=== PATIENT | female | born 1985 | race Caucasian/White ===

== ENCOUNTER 2024-07-08 18:31 | Inpatient (IN) | payer MEDICARE, MEDICAID, SELFPAY ==
--- OUTSIDE RECORDS SUMMARY | 2024-07-08 18:36 | XMS_ITS | Continuity of Care Document ---
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 Following the clinical examination ligamentous testing was negative, however meniscal testing was positive for pain but no clicks (Chrissy and Themarci). Pain and apprehension with extension was consistent, and an approach focused on building strength and motor control of the hamstrings and calf musculature was initiated. She appears to be an appropriate candidate for PT services. Clinical goals: 1) Decrease pain to 4/10 or less. 2) Improve Patient Specific Functional Scale score to less than 40% impaired 3) Left knee AROM 0-140 4) Perform balancing single limb heel/toe raises without apprehension 5) Independent with HEP including consistent positive symptom responses. Treatment Plan: Patient to return for 10 visits over 12 weeks. Treatment may include: Therapeutic exercises for improved lower extremity strength and control as well as improved flexibility, neuromuscular reeducation for improved motor control with functional activities as well as improved balance, manual therapy techniques for improved joint and soft tissue mobility as well as reduced pain. [email or web address] Not available 06/09/2024 13:17:43 Plan of Treatment Reminders Order Date Submit Date Provider Last Modified By Organization Details Last Modified Time Details Appointments Follow Up, 2024 11:00A M FRANK RIVERA DPT Not available Not available Not available LAB Follow-Up 2024 11:30A M [facility] Lab Not available Not available Not available Wellness Visit 2024 01:30P M GARRETT KHAN, DO Not available Not available Not available Lab None recorded. Referral None recorded. Procedures None recorded. Surgeries None recorded. Imaging None recorded. Medication Orders None recorded. Patient TargetsNo targets recorded. Patient InstructionsNo instructions recorded. Reason for Referral None Reported. Results Created Date Observation Date Name Description Value Unit Range Abnormal Flag Note LastModifiedBy Organization Detail LastModifiedTime 05/29/2005/29/2024 , marcelina Ballesteros observ ation record ed. [facility] [place] [address] [place], [address], 06/05/2024 11:43:50 Result Notes None recorded. Problems Name Problem SNOMED Code Status Onset Date Resolution Date Notes Provider Name and Address Organization Details Recorded Time Bipolar disorder 29812995 [facility] 3 13:59:15 Nondepen dent opioid abuse in [facility] n [id number] Completed 04/19/2014 Melissa Russell, [facility], [facility] KASSANDRA maloney, [phone] , [facility] 6 13:45:15 Disorder of vision 95914567 Active [facility] 3 13:59:15 Chronic hepatiti s C 276618354 Active [facility] 3 13:59:15 Tobacco dependen ce syndrome 03234042 Active [facility] 3 13:59:15 History of attempte d suicide 220431129 Active by overdose [facility] 3 13:59:15 Seizure disorder 758494447 Active abnormal EEG, workup in progress Breonna Farrah, [place] [facility] 3 13:59:15 Type B viral hepatiti s 19308480 Active per discharg e 07/20/15 [facility] 3 13:59:15 Tobacco user 233546650 Active 2018 [facility] 3 13:59:15 Migraine 93988401 Active 2018 [facility] 3 13:59:15 Atypical chest pain 031431564 Active 2019 [facility] 3 13:59:15 Hidraden itis suppurat amina 59553655 Active 2019 [facility] 3 13:59:15 Depressi ve disorder 09875225 Active [facility] 3 13:59:15 Acute health crisis 238136487 Active 2022 [facility] 3 11:04:29 Major depressi ve disorder 766563474 Active 2022 [facility] 3 11:04:52 Current drinker 066262 Active 2022 Alcohol use, [facility] 3 11:05:20 Opioid dependen ce 66609683 Active 2022 [facility] 3 11:05:44 Mood disorder 13935577 Active 2023 per [facility] discharg e 01/21/24. Maggi Dejesus LPN null, [facility] 4 08:29:56 Posttrau matic stress disorder 03962402 Active 2023 per [facility] discharg e 01/21/24. Maggi Dejesus LPN null, [facility] 4 08:30:18 Alcohol dependen ce 97248354 Active 2023 per [facility] discharg e 01/21/24. Maggi Dejesus LPN null, [facility] 4 08:30:35 Mass of left breast [id number] 559367 Active 2023 GARRETT KHAN, [address] [place] [address], [phone], [facility] 07:15:58 Problem Notes None recorded. Procedures Surgical History Date Name Laterality Status Provider Name and Address Organization Details Recorded Time 06/16/20 95942: Therapeutic Exercise completed FRANK RIVERA DPT [address] [place] [address], [phone], [facility] 06/16/2024 12:05:09 06/16/20 Physical Activity Counselling completed FRANK RIVERA DPT [address] [place] [address], [phone], [facility] 06/16/2024 11:07:44 06/16/20 Treatment and Advice completed FRANK RIVERA DPT [address] [place] [address], [phone], [facility] 06/16/2024 11:07:44 06/09/20 Physical Activity Counselling completed FRANK RIVERA DPT [address] [place] [address], [phone], [facility] 06/09/2024 10:29:43 06/09/20 24 58442: PT Eval Low Complexity completed FRANK RIVERA DPT [address] [place] [address], [phone], [facility] 06/09/2024 10:29:43 06/09/20 Treatment and Advice completed FRANK RIVERA DPT [address] [place] [address], [phone], [facility] 06/09/2024 11:52:07 05/04/20 Smoking cessation counseling completed Cira Michael [facility] 05/04/2024 09:36:27 03/13/20 Smoking cessation counseling completed Cira Michael [facility] 03/13/2024 13:34:00 03/13/20 24 Medicare Wellness Visit completed Cira Michael [facility] 03/13/2024 13:32:58 03/13/20 24 Alcohol overuse counseling completed Cira Micheal [facility] 03/13/2024 13:34:08 02/09/20 24 Smoking cessation counseling cancelled Cira Michael [facility] 02/09/2024 12:32:49 02/01/20 24 Post hospital/SNF follow-up/Transiti onal Care cancelled NILDA CASTELLANO, [facility]-[address], [phone], [facility] 02/01/2024 05:30:05 11/04/19 22 Smoking cessation counseling completed Melissa Russell, [facility]-[address], [phone], [facility] 11/18/2021 17:48:27 08/06/19 22 Smoking cessation counseling completed Melissa Russell, [facility], [phone], [facility] 08/06/2021 19:51:14 08/06/19 22 Alcohol use screening completed Chery Gonzales MA [facility] 08/06/2021 08:22:20 08/06/19 22 Cardiovascular disease risk reduction counseling completed Chery Gonzales MA [facility] 08/06/2021 08:22:20 08/06/19 22 Medicare Annual Wellness Visit completed Melissa Russell, [facility], [phone], [facility] 08/06/2021 19:51:12 05/13/20 21 Smoking cessation counseling completed Charis Adair NP [address] [place] [address], [phone], [facility] 05/13/2021 11:37:57 05/03/20 20 Smoking cessation counseling completed Chery Gonzales MA [facility] 05/03/2020 14:24:15 05/03/20 20 Carbon Monoxide Testing completed Chery Gonzales MA [facility] 05/03/2020 14:24:15 05/03/20 20 prevention-annual alcohol misuse screening completed Chery Gonzales MA [facility] 05/03/2020 14:18:13 03/02/20 20 Smoking cessation counseling completed Lexy [facility] 03/02/2020 14:06:52 03/02/20 20 Carbon Monoxide Testing completed Lexy [facility] 03/02/2020 14:06:52 02/29/20 20 Smoking cessation counseling completed Melissa Russell, [facility] [address] [place] [address], [phone], [facility] 02/29/2020 10:15:18 07/21/19 20 Smoking cessation counseling completed Melissa Russell [facility] [address] [place] [address], [phone], [facility] 07/23/2019 15:06:02 07/21/19 20 Carbon Monoxide Testing completed Melissa Russell [facility] [address] [place] [address], [phone], [facility] 07/21/2019 10:14:22 04/14/20 19 Smoking cessation counseling completed [facility] 04/14/2019 11:33:44 04/14/20 19 Medicare Wellness Visit completed [facility] 04/14/2019 11:33:09 04/14/20 19 Carbon Monoxide Testing completed [facility] 04/14/2019 11:33:44 01/31/20 19 Smoking cessation counseling completed Melissa Russell [facility] [address] [place] [address], [phone], [facility] 01/30/2019 09:09:13 01/31/20 19 Carbon Monoxide Testing completed Melissa Russell [facility] [address] [place] [address], [phone], [facility] 01/30/2019 09:09:13 07/29/19 19 Smoking cessation counseling completed Lexy Alfaro LPN [facility] 07/29/2018 09:53:52 07/29/19 19 Carbon Monoxide Testing completed Lexy Alfaro LPN [facility] 07/29/2018 09:53:52 07/26/19 19 Smoking cessation counseling completed Sylvia Clemons [facility] 07/26/2018 15:27:16 07/26/19 19 Carbon Monoxide Testing completed Sylvia Clemons [facility] 07/26/2018 15:27:17 01/20/20 18 Smoking cessation counseling completed Bibiana Encinas [facility] 01/19/2018 10:32:32 01/20/20 18 Carbon Monoxide Testing completed Bibianaluiz Encinas [facility] 01/19/2018 10:32:32 10/21/19 18 Smoking cessation counseling completed Abigail Kong MA [facility] 10/20/2017 09:48:40 10/21/19 18 Carbon Monoxide Testing completed Abigail Kong MA [facility] 10/20/2017 09:48:41 08/26/19 18 Smoking cessation counseling completed Bibianaluiz Encinas [facility] 08/25/2017 12:27:03 08/26/19 18 Carbon Monoxide Testing completed Bibianaluiz Encinas [facility] 08/25/2017 12:27:04 04/05/20 17 Smoking cessation counseling completed Lexy [facility] 04/05/2017 12:11:20 04/05/20 17 Carbon Monoxide Testing completed Lexy [facility] 04/05/2017 12:11:21 04/17/20 16 Smoking cessation counseling completed Maggi Baltazar MA [facility] 04/17/2016 10:48:44 11/29/19 16 Carbon Monoxide Testing completed Christina Knowles MA [facility] 11/29/2015 11:47:05 10/23/19 16 Carbon Monoxide Testing completed Christina Knowles MA [facility] 10/23/2015 12:20:36 04/19/20 14 Smoking cessation counseling completed Juliette Salgado MA [facility] 04/19/2014 15:29:49 02/17/20 14 Smoking cessation counseling completed Demetra Miller MA [facility] 02/16/2014 09:12:19 11/01/19 14 Smoking cessation counseling completed Lauren Smyth [facility] 10/31/2013 15:51:12 03/14/20 13 Medicare Wellness Visit completed Juliette Salgado MA [facility] 03/14/2013 11:45:33 Imaging Results None recorded. Procedure Notes None recorded. Medical Equipment None Reported. Allergies Allergen ID Allergen Name Allergen Category Reaction Reaction Severity Criticality Documentation Date Start Date Code Code System Note Provider Name and Address Organization Details Recorded Time 328119 Suboxone medicatio n rash Not available Not available 03/14/2013 59035 0 RxNorm hannah arredondo / hivKASSANDRA Roland [facility] 6 12:00:59 Medications Name Sig Start Date Stop Date Status Note LastModified by Organization Details LastModified Time paroxetin e tab 40mgparox etine hcl 10/22 completed Not Available Not Available Not Available hydroxyz sofie cap 25mg 11/28 completed Not Available Not Available Not Available gabapenti n cap 300mg active Not Available Not Available Not Available hydroxyzi ne hcl 50 mg tabs 04/17 completed Not Available Not Available Not Available paroxetin e tab 10mg active Not Available Not Available Not Available levetirac eta tab 500mg active Not Available Not Available Not Available omeprazol e 20 mg cpdr 10/22 completed Not Available Not Available Not Available citalopra m hydrobrom estrella 40 mg tabs 10/22 completed Not Available Not Available Not Available risperido ne tab 1mg active Not Available Not Available Not Available hydroxyz sofie cap 50mg active Not Available Not Available Not Available bupropion tab 150mg sr active Not Available Not Available Not Available clonidine tab 0.2mg active Not Available Not Available No t Available haloperid ol tab 2mg 10/22 completed Not Available Not Available Not Available levetirac eta tab 250mg active Not Available Not Available Not Available suboxone mis 8-2mg active Not Available Not Available No t Available propranol ol tab 10mgpropr anolol hcl 11/28 completed Not Available Not Available Not Available metoprolo l tartrate 25 mg tabs 10/22 completed Not Available Not Available Not Available topiramat e tab 50mg active Not Available Not Available Not Available chlorprom az tab 100mgchlo rpromazin e hcl 04/17 completed Not Available Not Available Not Available suboxone 8-2 mg film 04/17 completed Not Available Not Available Not Available hydroxyzi ne pamoate 50 mg caps 04/17 completed Not Available Not Available Not Available benztropi ne tab 1mg 10/22 completed Not Available Not Available Not Available fluoxetin e cap 40mg active Not Available Not Available Not Available clonidine tab 0.1mg active Not Available Not Available No t Available prazosin hcl cap 2mg 10/22 completed Not Available Not Available Not Available clonazepa m tab 2mg active Not Available Not Available No t Available gabapenti n 300 mg caps 11/28 completed Not Available Not Available Not Available prazosin hcl 2 mg caps 10/22 completed Not Available Not Available Not Available topiramat e tab 25mg active Not Available Not Available Not Available propranol ol hcl 10 mg tabs 11/28 completed Not Available Not Available Not Available cephalexi n cap 500mg active Not Available Not Available Not Available levetirac eta tab 750mg active Not Available Not Available Not Available prazosin hcl cap 2mgprazos in hcl 10/22 completed Not Available Not Available Not Available dicyclomi ne tab 20mg active Not Available Not Available Not Available atorvasta tin calcium 10 mg tabs 10/22 completed Not Available Not Available Not Available lorazepam tab 1mg active Not Available Not Available Not Available benztropi ne mesylate 0.5 mg tabs 10/22 completed Not Available Not Available Not Available topiramat e 50 mg tabs 04/17 completed Not Available Not Available Not Available mirtazapi ne 15 mg tabs 10/22 completed Not Available Not Available Not Available risperido ne 2 mg tabs 10/22 completed Not Available Not Available Not Available buspirone tab 15mg active Not Available Not Available Not Available levetirac etam 250 mg tabs 10/22 completed Not Available Not Available Not Available mirtazapi ne tab 45mg active Not Available Not Available Not Available lamotrigi ne tab 25mg 10/22 completed Not Available Not Available Not Available prazosin hcl 1 mg caps 10/22 completed Not Available Not Available Not Available topiramat e tab 50mgtopir amate 04/17 completed Not Available Not Available Not Available cyclobenz apr tab 5mg active Not Available Not Available Not Available fluoxetin e cap 10mg active Not Available Not Available Not Available paroxetin e tab 20mgparox etine hcl 10/22 completed Not Available Not Available Not Available doxepin hcl cap 25mg 10/22 completed Not Available Not Available Not Available chlorprom azine hcl 25 mg tabs 04/17 completed Not Available Not Available Not Available propranol ol tab 10mg active Not Available Not Available Not Available chlorprom azine hcl 50 mg tabs 04/17 completed Not Available Not Available Not Available citalopra m tab 20mgcital opram hydrobrom estrella 10/22 completed Not Available Not Available Not Available topiramat e 100 mg tabs 04/17 completed Not Available Not Available Not Available paroxetin e tab 30mg active Not Available Not Available Not Available risperido ne tab 2mg active Not Available Not Available Not Available prazosin hcl cap 1mg active Not Available Not Available Not Available benztropi ne mesylate 1 mg tabs 10/22 completed Not Available Not Available Not Available fluoxetin e hcl 20 mg caps 04/17 completed Not Available Not Available Not Available gabapenti n 100 mg caps 11/28 completed Not Available Not Available Not Available zolpidem tab 10mg active Not Available Not Available Not Available levetirac etam 750 mg tabs 10/22 completed Not Available Not Available Not Available gabapenti n cap 100mggaba pentin 11/28 completed Not Available Not Available Not Available risperido ne tab 2mgrisper idone 10/22 completed Not Available Not Available Not Available lorazepam tab 2mg active Not Available Not Available Not Available haloperid ol 5 mg tabs 10/22 completed Not Available Not Available Not Available paroxetin e tab 40mg active Not Available Not Available Not Available topiramat e tab 25mgtopir amate 04/17 completed Not Available Not Available Not Available permethri n cre 5%permeth rin 10/22 completed Not Available Not Available Not Available topiramat e tab 100mg active Not Available Not Available Not Available lithium carbonate er 450 mg tbcr 10/22 completed Not Available Not Available Not Available prazosin hcl cap 1mgprazos in hcl 10/22 completed Not Available Not Available Not Available pramipexo le tab 0.125mg active Not Available Not Available Not Available aripipraz ole 5 mg tabs 10/22 completed Not Available Not Available Not Available fluoxetin e 40 mg capsule TAKE 1 CAPSULE BY MOUTH EVERY DAY active Not Available Not Available No t Available amoxicill in 500 mg capsule 01/30 completed Not Available Not Available Not Available Mapap Extra Strength 500 mg tablet 01/30 completed Not Available Not Available Not Available lindane 1 % lotion APPLY IN A THIN LAYER (30-60 ML) TO DRY SKIN (RUB IN THOROUGH LY) BY TOPICAL ROUTE ONCE LEAVE ON FOR 8-12 HR, THEN REMOVE BY THOROUGH WASHING 10/22 completed Not Available Not Available Not Available lamotrigi ne 150 mg tablet take 1 tablet by mouth once daily active increase d to 200mg 09/08/23 LL Not Available Not Available Not Available bupropion HCl SR 150 mg tablet,12 hr sustained -release TAKE 1 TABLET BY MOUTH IN THE MORNING AND 1 AT 3PM active Not Available Not Available No t Available clonidine HCl 0.1 mg tablet TAKE 1 TABLET BY MOUTH TWICE A DAY NEEDED 2024 active Not Available Not Available Not Avai lable acetamino phen 325 mg tablet TAKE 2 TABLETS BY MOUTH EVERY 4 HOURS NEEDED FOR PAIN NOT TO EXCEDD 3000MG PER DAY active Not Available Not Available No t Available gabapenti n 600 mg tablet 04/17 completed Not Available Not Available Not Available doxycycli ne hyclate 100 mg capsule take 1 capsule by mouth twice a day for 7 days 05/31 completed PRN, duplicat e. Not Available Not Available Not Available paroxetin e 10 mg tablet TAKE 1 TABLET BY MOUTH ONCE A DAY active Not Available Not Available No t Available benztropi ne 0.5 mg tablet TAKE 1 TABLET BY MOUTH EVERY MORNING FOR SIDE EFFECTS 10/22 completed Not Available Not Available Not Available lamotrigi ne 200 mg tablet TAKE 1 TABLET BY MOUTH DAILY (DOSE INCREASE 07/16/23) active Not Available Not Available No t Available ketoconaz ole 2 % shampoo APPLY TO SCALP TOPICALL Y TWICE A WEEK LEAVE ON FOR 5 MINUTES THEN WASH OFF active Not Available Not Available No t Available haloperid ol 5 mg tablet 10/22 completed Not Available Not Available Not Available citalopra m 40 mg tablet TAKE 1 TAB BY MOUTH ONCE DAILY AT BEDTIME. 10/22 completed Not Available Not Available Not Available trazodone 50 mg tablet TAKE 1 TABLET BY MOUTH AT BEDTIME active Not Available Not Available No t Available atorvasta tin 10 mg tablet 10/22 completed Not Available Not Available Not Available azithromy jackie 250 mg tablet take 2 tablets by mouth today then take 1 tablet DAILY FOR 4 DAYS 12/07 completed Not Available Not Available Not Available ibuprofen 800 mg tablet take 1 tablet by mouth every 6 hours active Not Available Not Available No t Available doxepin 25 mg capsule 10/20 completed Not Available Not Available Not Available levetirac etam 500 mg tablet TK 1 T PO BID 10/22 completed Not Available Not Available Not Available levonorge strel-eth inyl estradiol 0.1 mg-20 mcg tablet Take 1 tablet every day by oral route for 28 days. 04/17 completed Not Available Not Available Not Available sumatript an 100 mg tablet TAKE 1 TABLET BY MOUTH EVERY DAY NEEDED FOR MIGRAINE TAKE AT THE ONSET OF HEADACHE active Not Available Not Available No t Available chlorprom azine 100 mg tablet TAKE 1 TABLET BY MOUTH AT BEDTIME 04/17 completed Not Available Not Available Not Available prazosin 1 mg capsule TAKE 1 CAPSULE BY MOUTH EVERY NIGHT AT BEDTIME active Not Available Not Available No t Available senna 8.6 mg tablet TAKE 2 TABS BY MOUTH ONCE DAILY. 10/22 completed Not Available Not Available Not Available ondansetr on HCl 8 mg tablet take 1 tablet by mouth once daily if needed 09/07 completed Not Available Not Available Not Available fluconazo le 200 mg tablet take 1 tablet by mouth once daily for 42 DAYS 04/17 completed Not Available Not Available Not Available meloxicam 15 mg tablet TAKE 1 TABLET EVERY DAY BY ORAL ROUTE NEEDED FOR 21 DAYS. 2023 active Not Available Not Available Not Avai lable phenazopy ridine 200 mg tablet take 1 tablet by mouth three times a day for 3 days if needed 03/26 completed Not Available Not Available Not Available spironola ctone 100 mg tablet TAKE 1 TABLET BY MOUTH EVERY DAY IN THE MORNING active Not Available Not Available No t Available gabapenti n 400 mg capsule 11/28 completed Not Available Not Available Not Available benzoyl peroxide 10 % topical cleanser APPLY TOPICALL Y TO AXILLA, UNDER BREASTS, ABDOMINA L FOLDS, AND GROIN DAILY active Not Available Not Available No t Available naproxen 250 mg tablet TAKE 1-2 TABS BY MOUTH TWICE A DAY FOR MODERATE PAIN SCALE 4-6 05/04 completed Not Available Not Available Not Available triamcino lone acetonide 0.025 % lotion APPLY TOPICALL Y TO SCALP TWICE DAILY FOR 3 MONTHS THEN STOP active Not Available Not Available No t Available permethri n 5 % topical cream APPLY FROM NECK TO SOLES OF FEET. LEAVE ON FOR 8-14HOUR S THEN WASH OFF THOROUGH LY 10/22 completed Not Available Not Available Not Available sumatript an 50 mg tablet take 1 tablet by mouth if needed AT ONSET OF HEADACHE 09/07 completed increase d to 100mg 09/08/23 LL Not Available Not Available Not Available hydroxyzi ne pamoate 50 mg capsule TAKE ONE CAPSULE BY MOUTH AT BEDTIME 04/17 completed Not Available Not Available Not Available lithium carbonate ER 300 mg tablet,ex tended release takes 3 at bedtime 10/20 completed 04/05/17 patient states not taking Not Available Not Available Not Available topiramat e 25 mg tablet TAKE 1 TABLET BY MOUTH EVERY DAY active Not Available Not Available No t Available hydroxyzi ne HCl 50 mg tablet TAKE 1 TABLET BY MOUTH TWICE A DAY NEEDED active 05/31/20 23- Has not had medicati on in a while, not taking. TR/RMA doesnt know if shes still using 09/08/23 LL Not Available Not Available Not Available melatonin 3 mg tablet take 1 tablet by mouth at bedtime for sleep active Not Available Not Available No t Available doxepin 10 mg capsule take 1/2 to 1 capsule by mouth at bedtime (DILUTE CAPSULE IN WATER) 09/18 completed Not Available Not Available Not Available sulfameth oxazole 800 mg-trimet hoprim 160 mg tablet take 1 tablet by mouth every 12 hours for 5 days 04/01 completed Not Available Not Available Not Available SF 1.1 % dental gel active Not Available Not Available Not Available Nicotrol 10 mg inhalatio n cartridge Inhale 6 cartridg es every day by inhalati on route as needed for 30 days. 01/30 completed Not Available Not Available Not Available triamcino lone acetonide 0.1 % topical cream APPLY A THIN LAYER TOPICALL Y TO AFFECTED AREA TWICE A DAY FOR 2 WEEKS NEEDED active Not Available Not Available No t Available spironola ctone 25 mg tablet take 1 tablet by mouth once daily WITH 50MG TABLETS active increase d to 100mg 09/08/23 LL Not Available Not Available Not Available lithium carbonate ER 450 mg tablet,ex tended release 10/22 completed Not Available Not Available Not Available ondansetr on 8 mg disintegr ating tablet PLACE 1 TABLET ON THE TONGUE AND DISSOLVE NEEDED DAILY active Not Available Not Available No t Available lamotrigi ne 25 mg tablet take 1 tablet by mouth daily for 2 weeks then take 2 tablets daily 04/09 completed Not Available Not Available Not Available ciclopiro x 8 % topical solution APPLY TO AFFECTED AREA AT BEDTIME OR FOR 8 HOURS BEFORE WASHING 05/31 completed not taking, per pt Not Available Not Available Not Available risperido ne 2 mg tablet TAKE 1 TABLET BY MOUTH EVERY NIGHT 10/22 completed Not Available Not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
--- OUTSIDE RECORDS SUMMARY | 2024-07-08 18:36 | XMS_ITS | Continuity of Care Document ---
Author Organization [facility], Physical Therapy, [facility] Address [address] [place] [address] Care Team Providers Care Thoracic Medicine Specialist Name Role Phone APOLONIA JANG Psychiatrist DASH TAVERAS Neurologist [facility] Health Policy Analyst [facility] OTHER GARRETT KHAN Primary Care Provider [phone] Assessment Encounter Date Assessment Date Assessment LastModified by Organization Details LastModified Time 06/16/2024 06/16/2024 Assessment: Patient tolerating exercises performed during session well, with no increased pain at time of performance. Noted patient's concerns regarding UE and back symptoms, encouraged follow up with her PCP if symptoms continue. Clinical goals: 1) Decrease pain to 4/10 [...] tissue mobility as well as reduced pain. [email or web address] Not available 06/16/2024 11:45:54 Plan of Treatment Reminders Order Date Submit Date Provider Last Modified By Organization Details Last Modified Time Details Appointments Follow Up, 30 2024 11:00A Shruti RIVERA DPT Not available Not available Not available LAB Follow-Up 2024 11:30A M [facility] Lab Not available Not available Not available Wellness Visit 30 2024 01:30P M GARRETT KHAN, DO Not available Not available Not available Lab None recorded. Referral None recorded. Procedures None recorded. Surgeries None recorded. Imaging None recorded. Medication Orders None recorded. Patient TargetsNo targets recorded. Patient InstructionsNo instructions recorded. Reason for Referral None Reported. Results Created Date Observation Date Name Description Value Unit Range Abnormal Flag Note LastModifiedBy Organization Detail LastModifiedTime 05/29/20 24 05/29/2024 , marcelina Ballesteros observ ation record ed. [facility] [place] [address], [place], [address], 06/05/2024 11:43:50 Result Notes None recorded. Problems Name Problem SNOMED Code Status Onset Date Resolution Date Notes Provider Name and Address Organization Details Recorded Time Bipolar disorder 46920604 [facility] 13:59:15 Nondepen dent opioid abuse in [facility] n 534448536 Completed 04/19/2014 Melissa Russell, [facility], [place], [address] , [facility] 6 13:45:15 Disorder of vision 54523007 [facility] 13:59:15 Chronic hepatiti s C 513267358 [facility] 3 13:59:15 Tobacco dependen ce syndrome 39477358 [facility] 3 13:59:15 History of attempte d suicide 150485923 Active by overdose [facility] 3 13:59:15 Seizure disorder 477384078 Active abnormal EEG, workup in progress [facility] 3 13:59:15 Type B viral hepatiti s 84712786 Active per discharg e 07/20/15 [facility] 13:59:15 Tobacco user 696575723 Active 2018 [facility] 3 13:59:15 Migraine 03750081 Active 2018 [facility] 3 13:59:15 Atypical chest pain 002141562 Active 2019 [facility] 3 13:59:15 Hidraden itis suppurat amina 05283661 Active 2019 [facility] 3 13:59:15 Depressi ve disorder 96664315 [facility] 3 13:59:15 Acute health crisis 761631583 Active 2022 [facility] Vale Lowe [facility] 3 11:04:29 Major depressi ve disorder 474658264 Active 2022 [facility] Vale Ringer [facility] 3 11:04:52 Current drinker 153959 Active 2022 Alcohol use, [facility] Vale Lowe [facility] 3 11:05:20 Opioid dependen ce 55823295 Active 2022 [facility]. Vale Lowe [facility] 3 11:05:44 Mood disorder 54999518 Active 2023 per [facility] discharg e 01/21/24. Maggi Dejesus LPN null, [facility] 4 08:29:56 Posttrau matic stress disorder 53713905 Active 2023 per [facility] e 01/21/24. Maggi Dejesus LPN null, [facility] 4 08:30:18 Alcohol dependen ce 83084981 Active 2023 per [facility] e 01/21/24. Maggi Dejesus LPN null, [facility] 4 08:30:35 Mass of left breast 28298331611 023179 Active 2023 GARRETT KHAN DO [address] [place] [address], [phone], [facility] 07:15:58 Problem Notes None recorded. Procedures Surgical History Date Name Laterality Status Provider Name and Address Organization Details Recorded Time 06/16/20 00898: Therapeutic Exercise completed FRANK RIVERA DPT [address] [place] [address], [address], [facility] 06/16/2024 12:05:09 06/16/20 Physical Activity Counselling completed FRANK RIVERA DPT [address] [place] [address], [address], [facility] 06/16/2024 11:07:44 06/16/20 Treatment and Advice completed FRANK RIVERA DPT [address] [place] [address], [address], [facility] 06/16/2024 11:07:44 06/09/20 Physical Activity Counselling completed FRANK RIVERA DPT [address] [place] [address], [address], [facility] 06/09/2024 10:29:43 06/09/20 24 03911: PT Eval Low Complexity completed FRANK RIVERA DPT [address] [place] [address], [address], [facility] 06/09/2024 10:29:43 06/09/20 Treatment and Advice completed FRANK RIVERA DPT [address] [place] [address], [address], [facility] 06/09/2024 11:52:07 05/04/20 Smoking cessation counseling completed Cira Michael [facility] 05/04/2024 09:36:27 03/13/20 24 Smoking cessation counseling completed Cira Michael [facility] 03/13/2024 13:34:00 03/13/20 24 Medicare Wellness Visit completed Cira Michael [facility] 03/13/2024 13:32:58 03/13/20 24 Alcohol overuse counseling completed Cira Michael [facility] 03/13/2024 13:34:08 02/09/20 24 Smoking cessation counseling cancelled Cira Michael [facility] 02/09/2024 12:32:49 02/01/20 24 Post hospital/SNF follow-up/Transiti onal Care cancelled NILAD LR LTAlon, [address], [address], [facility] 02/01/2024 05:30:05 11/04/19 22 Smoking cessation counseling completed Melissa Russell, [address], [address], [facility] 11/18/2021 17:48:27 08/06/19 22 Smoking cessation counseling completed Melissa Russell, [address], [address], [facility] 08/06/2021 19:51:14 08/06/19 22 Alcohol use screening completed Chery Gonzales MA [facility] 08/06/2021 08:22:20 08/06/19 22 Cardiovascular disease risk reduction counseling completed Chery Gonzales MA [facility] 08/06/2021 08:22:20 08/06/19 22 Medicare Annual Wellness Visit completed Melissa Russell [address], [address], [facility] 08/06/2021 19:51:12 05/13/20 21 Smoking cessation counseling completed Charis Adair NP [address] [place] [address], [address], [facility] 05/13/2021 11:37:57 05/03/20 20 Smoking cessation counseling completed Chery Gonzales MA [facility] 05/03/2020 14:24:15 05/03/20 20 Carbon Monoxide Testing completed Chery Gonzales MA [facility] 05/03/2020 14:24:15 05/03/20 20 prevention-annual alcohol misuse screening completed Chery Pise, [facility] 05/03/2020 14:18:13 03/02/20 20 Smoking cessation counseling completed Lexy Lopez [facility] 03/02/2020 14:06:52 03/02/20 20 Carbon Monoxide Testing completed Lexy Lopez [facility] 03/02/2020 14:06:52 02/29/20 20 Smoking cessation counseling completed Melissa Russell [facility]-[address], [address], [facility] 02/29/2020 10:15:18 07/21/19 20 Smoking cessation counseling completed Melissa Russell [facility]-[address], [address], [facility] 07/23/2019 15:06:02 07/21/19 20 Carbon Monoxide Testing completed Melissa Russell [facility]-[address], [address], [facility] 07/21/2019 10:14:22 04/14/20 19 Smoking cessation counseling completed [facility] 04/14/2019 11:33:44 04/14/20 19 Medicare Wellness Visit completed [facility] 04/14/2019 11:33:09 04/14/20 19 Carbon Monoxide Testing completed [facility] 04/14/2019 11:33:44 01/31/20 19 Smoking cessation counseling completed Melissa Russell [facility]-[address], [address], [facility] 01/30/2019 09:09:13 01/31/20 19 Carbon Monoxide Testing completed Melissa Russell [facility]-[address], [address], [facility] 01/30/2019 09:09:13 07/29/19 19 Smoking cessation counseling completed Lexy Alfaro LPN [facility] 07/29/2018 09:53:52 07/29/19 19 Carbon Monoxide Testing completed Lexy Alfaro LPN [facility] 07/29/2018 09:53:52 07/26/19 19 Smoking cessation counseling completed Sylvia Clemons [facility] 07/26/2018 15:27:16 07/26/19 19 Carbon Monoxide Testing completed Sylvia Clemons [facility] 07/26/2018 15:27:17 01/20/20 18 Smoking cessation counseling completed Bibiana Encinas [facility] 01/19/2018 10:32:32 01/20/20 18 Carbon Monoxide Testing completed Bibiana Encinas [facility] 01/19/2018 10:32:32 10/21/19 18 Smoking cessation counseling completed Abigail Kong MA [facility] 10/20/2017 09:48:40 10/21/19 18 Carbon Monoxide Testing completed Abigail Kong MA [facility] 10/20/2017 09:48:41 08/26/19 18 Smoking cessation counseling completed Bibiana Encinas [facility] 08/25/2017 12:27:03 08/26/19 18 Carbon Monoxide Testing completed Bibiana Encinas [facility] 08/25/2017 12:27:04 04/05/20 17 Smoking cessation counseling completed Lexy Lopez [facility] 04/05/2017 12:11:20 04/05/20 17 Carbon Monoxide Testing completed Lexy Lopez [facility] 04/05/2017 12:11:21 04/17/20 16 Smoking cessation counseling completed Maggi Baltazar MA [facility] 04/17/2016 10:48:44 11/29/19 16 Carbon Monoxide Testing completed Christina Knowles MA [facility] 11/29/2015 11:47:05 10/23/19 16 Carbon Monoxide Testing completed Christina Knowles MA [facility] 10/23/2015 12:20:36 04/19/20 14 Smoking cessation counseling completed Juliette Salgado MA [facility] 04/19/2014 15:29:49 02/17/20 14 Smoking cessation counseling completed Demetra Miller MA [facility] 02/16/2014 09:12:19 11/01/19 14 Smoking cessation counseling completed Lauren Smyth [facility] 10/31/2013 15:51:12 03/14/20 13 Medicare Wellness Visit completed Juliette Salgado MA [facility] 03/14/2013 11:45:33 Imaging Results None recorded. Procedure Notes None recorded. Medical Equipment None Reported. Allergies Allergen ID Allergen Name Allergen Category Reaction Reaction Severity Criticality Documentation Date Start Date Code Code System Note Provider Name and Address Organization Details Recorded Time 900138 Suboxone medicatio n rash Not available Not available 03/14/2013 09756 0 RxNorm hannah arredondo / zohra Knowles MA [facility] 6 12:00:59 Medications Name Sig Start [...] BY MOUTH EVERY DAY AT BEDTIME CANCEL [place] LD RX active Not Available [...] methadone 10/22 completed 40 mg daily @ [facility] Not Available Not Available Not Available [...] Not Available Not Available Not Available Fluzone 7364-6768 45 mcg (15 mcg x 3)/0.5 mL intramusc ular suspensio n TO BE ADMINIST ERED BY PHARMACI ST FOR IMMUNIZA TION active Not Available Not Available No t Available Vitals None Recorded Social History Question Answer Notes LastModified by Organizat ion Details LastModified Time Tobacco Smoking Status Current Every Day Smoker Greta Slade MA [facility], [facility] 09/18/2020 16:15:47 What Is Your Level [...] 07/21/2019 Education 12 GED, Wants To Become Table Operator Information not available 03/14/2013 What Is Your Occupation? Disability For Psych Problems,f Or The Last 4 Years Information not available 03/14/2013 Have There Been Any Changes To Your Family Or Social Situation? Yes Brother Is Trying To Get A Liver Transplant! Has Seperated From [facility], [facility] Information not available 03/13/2024 How Many Days [...] 05/03/2020 Does The Patient Have Difficulty Speaking Fijian? No Information not available 03/14/2013 Does The Patient Have Difficulty Reading Fijian? No Information not available 11/29/2015 CCM Consent Discussion 10/20/2017 gabe Information not available 10/20/2017 Marital Status Single Has Off And On Female Partner- / 18- IN A RELATIONSHIP Information not available 03/14/2013 Mosquito Repellent Used Routinely No Information not available 03/14/2013 What Was The Date Of Your Most Recent Tobacco Screening? 05/04/2024 Information not available 05/04/2024 How Many Children Do You Have? 1 Step Daughter Information not available 03/04/2023 What Is Your [...] cancer Medical History Condition Response NEUROLOGIC Y INFECTIOUS DISEASE ENT N GASTROINTESTINAL N SKIN N Hepatitis C Y MUSCULOSKELETAL Y ENDOCRINE N RHEUMATOLOGIC N RESPIRATORY N EYE Y RENAL / GENITOURINARY N HEMATOLOGIC N Hepatitis B Y HIV/AIDS N Substance Abuse Y CARDIOVASCULAR N CANCER N Gynecological History Statement/Question Response History of Abnormal Pap N Current Control Method Date of LMP 07/23/2021 LMP Approximate Frequency of Cycle (Q days) Obstetrics History GPAL:G 0 P 0 0 0 0 Immunizations Vaccine Type Date Status Note Provider Nam e and Address Organization Details Recorded Time influenza, unspecified formulation 3 completed Breonna Yan MA null, [facility] 07/16/2022 13:59:15 Influenza, split virus, quadrivalent, PF 9 completed Not Available [facility] 07/[facility]2019 02:30:26 Influenza, split virus, quadrivalent, PF 1 completed Charis Adair, [employer] [address] [place] [address], [address], [facility] 05/13/2021 11:33:01 Influenza, split virus, quadrivalent, PF 2 completed Melissa Russell, [address], [address], [facility] 04/19/2022 12:34:21 Influenza, split virus, quadrivalent, PF 3 completed Melissa Russell, [address], [address], [facility] 03/06/2023 12:19:47 Influenza, split virus, trivalent, PF 4 completed GARRETT KHAN, [address] [place] [address], [address], [facility] 03/15/2024 07:39:47 Tdap 4 completed NITZA Soriano, [facility] 08/06/2023 06:47:06 Past Encounters Encounter ID Performer Location Encounter Start Date Encounter Closed Date Diagnosis/Indication Diagnosis SNOMED-CT Code Diagnosis ICD10 Code Diagnosis Note [id number] FRANK RIVERA DPT Physical Therapy, [address] [address] 06/09/2024 10:43:39 06/09/2024 14:58:10 Pain of left knee joint 8848503649 07190 M25.562 [id number] FRANK RIVERA DPT Physical Therapy, [address] [address] 06/16/2024 10:58:38 06/16/2024 12:06:38 Pain of left knee joint 9123830655 88680 M25.562 Health Concerns Section Related Observation LastModified by Organization Detai ls LastModified Time None Recorded Concern Status LastModified by Organization Details LastModified Time None Recorded Payers Encounter Date Sequence Insurance Name Policy Number Policy Turcios Covered Member ID Turcios Member ID Guarantor Name 06/16/2024 1 [place] [employer] Alona Horowitz [id number] Alona Horowitz 06/16/2024 2 [place] Alona Horowitz [id number] Alona Horowitz Notes Date Note Type Note Provider Name and Address Organization Details Recorded Time 06/16/2024 text/html Current Subjective: Patient reports that she has done the exercises some at home. She is unsure if they are helping, but she has not had increased pain during. She is concerned about other pains on the left side of her body, including her left arm into her fingers including some tingling. She notes that she gets some numbness in her back. Activities: Patient does yoga, likes to run (but cannot), likes to dance Patient goals: Decrease pain, decrease the buckling, knee/move more comfortably Patient Specific Functional Score:{{10 20 30 4 0 50* 60 70 80 90 100}} Percent limitation in dance{{10 20 30* 4 0 50 60 70 80 90 1 00}} Percent limitation in run{{10 20 30 40 5 0 60 70 80 90 100} } Percent limitation in FRANK NICOLE, DPT [address] [place] [address], [address], [facility] 06/16/2024 12:06:02 OBGyn Episode No OBEpisode recorded.
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
[2024-07-08 19:15] VITALS: BMI 28.2
[2024-07-08 19:33] VITALS: BP 106/63; PULSE 74; TEMP 36.3; O2SAT 99
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
[2024-07-08 19:50] LABS: Alanine Aminotransferase 24 U/L (0-31); Albumin Level 4.4 g/dL (3.5-5.0); Alkaline Phosphatase 64 U/L (39-117); Anion Gap 10 (12-20); Aspartate Amino Transferase 22 U/L (5-31); Bilirubin Total 0.3 mg/dL (0.0-1.0); Blood Urea Nitrogen 14 mg/dL (9-16); Calcium 9.3 mg/dL (8.4-10.2); Carbon Dioxide 25 mmol/L (22-29); Chloride 106 mmol/L (96-108); Creatinine Clr Calc Pharmacy 99.1; Estimated Glomerular Filt Rate > 60; Glucose Random 90 mg/dL (60-115); Potassium 4.3 mmol/L (3.3-5.1); Sodium 137 mmol/L (135-145); Total Protein 7.7 g/dL (6.5-8.0)
[2024-07-08] MEDS: Prazosin HCL 1 MG CAPSULE PO (21:27)
[2024-07-08] MEDS: LORazepam 1 MG TABLET 2 MG PO (21:27)
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
[2024-07-09 08:00] VITALS: BP 118/73; PULSE 100; RESP 16; TEMP 36; O2SAT 97
[2024-07-09] MEDS: FLUoxetine HCl 20 MG CAPSULE 40 MG PO (08:03)
[2024-07-09 08:04] VITALS: BP 118/73
[2024-07-09] MEDS: Topiramate 25 MG TABLET PO (08:04)
[2024-07-09] MEDS: lamoTRIgine 100 MG TABLET 200 MG PO (08:04)
[2024-07-09] MEDS: Spironolactone 25 MG TABLET 100 MG PO (08:04)
[2024-07-09] MEDS: LORazepam 1 MG TABLET PO ×2 (08:05→20:31)
[2024-07-09] MEDS: Buprenorphine/Naloxone 8/2 mg FILM 1 FILM SUBLINGUAL (08:34)
[2024-07-09] MEDS: Buprenorphine/Naloxone 2/0.5mg FILM 1 FILM SUBLINGUAL (08:34)
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
[2024-07-09] MEDS: Acetaminophen 325 MG TABLET 650 MG PO (13:01)
[2024-07-09] MEDS: diazePAM 5 MG TABLET 20 MG PO (13:01)
[2024-07-09] MEDS: hydrOXYzine HCL 25 MG TABLET PO (17:48)
[2024-07-09] MEDS: Ondansetron ODT 8 MG TAB.RAPDIS TRANSLINGU (17:48)
[2024-07-09 19:51] VITALS: BP 116/61; PULSE 84; RESP 15; TEMP 36.6; O2SAT 98
[2024-07-09] MEDS: traZODone HCL 50 MG TABLET PO (20:27)
[2024-07-09] MEDS: LORazepam 1 MG TABLET 2 MG PO (20:27)
[2024-07-09] MEDS: Prazosin HCL 1 MG CAPSULE PO (20:27)
[2024-07-10 08:00] VITALS: BP 118/71; PULSE 58; TEMP 36; O2SAT 98
[2024-07-10] MEDS: lamoTRIgine 100 MG TABLET 200 MG PO (08:09)
[2024-07-10 08:10] VITALS: BP 118/71
[2024-07-10] MEDS: Spironolactone 25 MG TABLET 100 MG PO (08:10)
[2024-07-10] MEDS: Buprenorphine/Naloxone 8/2 mg FILM 1 FILM SUBLINGUAL (08:10)
[2024-07-10] MEDS: Topiramate 25 MG TABLET PO (08:10)
[2024-07-10] MEDS: LORazepam 1 MG TABLET PO (08:10)
[2024-07-10] MEDS: FLUoxetine HCl 20 MG CAPSULE 40 MG PO (08:10)
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
[2024-07-10] MEDS: diazePAM 5 MG TABLET 20 MG PO (14:43)
[2024-07-10] MEDS: Buprenorphine/Naloxone 2/0.5mg FILM 1 FILM SUBLINGUAL (16:00)
[2024-07-10] MEDS: hydrOXYzine HCL 25 MG TABLET PO (17:37)
[2024-07-10 20:00] VITALS: BP 112/76; PULSE 97; TEMP 36; O2SAT 98
[2024-07-10 21:29] VITALS: BP 112/76
[2024-07-10] MEDS: Prazosin HCL 1 MG CAPSULE PO (21:29)
[2024-07-10] MEDS: traZODone HCL 50 MG TABLET PO (21:29)
[2024-07-10] MEDS: LORazepam 1 MG TABLET 2 MG PO (21:29)
[2024-07-11 02:50] VITALS: BP 109/60; PULSE 73; TEMP 36.6; O2SAT 98
[2024-07-11 02:55] VITALS: BP 109/60
[2024-07-11] MEDS: Ondansetron ODT 8 MG TAB.RAPDIS TRANSLINGU (02:55)
[2024-07-11] MEDS: cloNIDine HCL 0.1 MG TABLET PO (02:55)
[2024-07-11] MEDS: Loperamide HCl 2 MG CAPSULE 4 MG PO (03:09)
[2024-07-11 08:00] VITALS: BP 110/57; PULSE 77; RESP 18; TEMP 36.8; O2SAT 97
[2024-07-11 08:06] VITALS: BP 110/57
[2024-07-11] MEDS: lamoTRIgine 100 MG TABLET 200 MG PO (08:06)
[2024-07-11] MEDS: Spironolactone 25 MG TABLET 100 MG PO (08:06)
[2024-07-11] MEDS: Buprenorphine/Naloxone 8/2 mg FILM 1 FILM SUBLINGUAL (08:07)
[2024-07-11] MEDS: FLUoxetine HCl 20 MG CAPSULE 40 MG PO (08:07)
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
[2024-07-11] MEDS: Buprenorphine/Naloxone 2/0.5mg FILM 1 FILM SUBLINGUAL (14:08)
[2024-07-11] MEDS: diazePAM 5 MG TABLET 20 MG PO (18:27)
[2024-07-11 20:00] VITALS: BP 122/73; PULSE 85; RESP 16; TEMP 36.2; O2SAT 99
[2024-07-11] MEDS: traZODone HCL 50 MG TABLET PO (21:01)
[2024-07-11] MEDS: Topiramate 25 MG TABLET PO (21:01)
[2024-07-11] MEDS: LORazepam 1 MG TABLET 2 MG PO (21:01)
[2024-07-11] MEDS: Prazosin HCL 1 MG CAPSULE PO (21:01)
[2024-07-12 07:51] VITALS: BP 128/57; PULSE 120; TEMP 36.6; O2SAT 100
[2024-07-12] MEDS: Buprenorphine/Naloxone 8/2 mg FILM 1 FILM SUBLINGUAL (08:06)
[2024-07-12] MEDS: FLUoxetine HCl 20 MG CAPSULE 40 MG PO (08:06)
[2024-07-12] MEDS: Spironolactone 25 MG TABLET 100 MG PO (08:06)
[2024-07-12] MEDS: lamoTRIgine 100 MG TABLET 200 MG PO (08:06)
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
[2024-07-12] MEDS: Buprenorphine/Naloxone 2/0.5mg FILM 1 FILM SUBLINGUAL (15:03)
[2024-07-12] MEDS: FLUoxetine HCl Oral Solution 20 MG/5 ML SOLUTION PO (16:07)
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
[2024-07-12] MEDS: diazePAM 5 MG TABLET 20 MG PO (17:52)
[2024-07-12 19:35] VITALS: BP 114/68; PULSE 89; RESP 16; TEMP 36.5; O2SAT 99
[2024-07-12] MEDS: Prazosin HCL 1 MG CAPSULE PO (21:02)
[2024-07-12] MEDS: traZODone HCL 50 MG TABLET PO (21:03)
[2024-07-12] MEDS: Topiramate 25 MG TABLET PO (21:03)
[2024-07-12] MEDS: LORazepam 1 MG TABLET 2 MG PO (21:03)
[2024-07-13 07:56] VITALS: BP 129/88; PULSE 109; RESP 18; TEMP 36.8; O2SAT 98
[2024-07-13] MEDS: Buprenorphine/Naloxone 8/2 mg FILM 1 FILM SUBLINGUAL (08:07)
[2024-07-13] MEDS: Spironolactone 25 MG TABLET 100 MG PO (08:07)
[2024-07-13] MEDS: lamoTRIgine 100 MG TABLET 200 MG PO (08:07)
[2024-07-13] MEDS: FLUoxetine HCl 20 MG CAPSULE 60 MG PO (08:07)
[2024-07-13] MEDS: Naloxone HCl Nasal TAKE HOME 4 MG SPRAY 8 MG NOSTRILALT (08:09)
[2024-07-13] MEDS: Milk of Magnesia 30 ML ORAL.SUSP PO (09:08)
== END 2024-07-13 10:31 | disposition home or self-care (01) | DRG 885 ==
PROVIDERS: Admitting Provider Psychiatry & Neurology Psychiatry; PCP Internal Medicine Nephrology; Visit Provider Psychiatry & Neurology Psychiatry
DX: F33.2 Major depressive disorder, recurrent severe without psychotic features (principal); F43.10 Post-traumatic stress disorder, unspecified; G89.21 Chronic pain due to trauma; M54.9 Dorsalgia, unspecified; M25.562 Pain in left knee; F17.210 Nicotine dependence, cigarettes, uncomplicated; Z71.6 Tobacco abuse counseling; Z79.899 Other long term (current) drug therapy
CPT/HCPCS: 36415; 80053

== ENCOUNTER → 2024-07-08 18:31 | Outpatient (BNV) | payer MEDICARE, MEDICAID, SELFPAY | PROVIDERS: Admitting Provider Psychiatry & Neurology Psychiatry; PCP Internal Medicine Nephrology; Visit Provider Psychiatry & Neurology Psychiatry | DX: F33.2 Major depressive disorder, recurrent severe without psychotic features (principal); F43.11 Post-traumatic stress disorder, acute | CPT/HCPCS: 90792; 99231; 99232; 99239 ==

== ENCOUNTER → 2024-07-08 18:31 | Outpatient (BNV) | payer MEDICARE, MEDICAID, SELFPAY | PROVIDERS: Admitting Provider Psychiatry & Neurology Psychiatry; PCP Internal Medicine Nephrology; Visit Provider Student in an Organized Health Care Education/Training Program | DX: Z02.2 Encounter for examination for admission to residential institution (principal) | CPT/HCPCS: 99429 ==

== ENCOUNTER 2024-10-02 10:57 | Emergency (ER) | payer MEDICARE, MEDICAID, SELFPAY ==
[2024-10-02 11:47] VITALS: BP 135/73; PULSE 66; RESP 19; TEMP 36.6; O2SAT 98; BMI 29.2
--- NOTE | 2024-10-02 11:48 | ED_ITS ---
HPI - General Adult General Chief complaint: Medical Clearance Stated complaint: Med Clearance Time Seen by Provider: 10/02/24 11:47 Source: patient Mode of arrival: ambulatory Limitations: no limitations History of Present Illness ED Provider: DEL VALENZUELA PA-C HPI narrative: 38 year old female pmhx significant for MDD and PTSD presents to the ED today requesting urine drug screen. She has a bed at [facility]. They requested she come to the ED for UDS. No complaints. Related Data Previous Rx's ?Medication ?Instructions ?Recorded buprenorphine 2 mg-naloxone 0.5 mg 1 film sublingual DAILY@1430 30 07/12/24 sublingual film days #30 ea buprenorphine 8 mg-naloxone 2 mg 1 film sublingual DAILY 30 days 07/12/24 sublingual film (Suboxone) #30 ea clonidine HCl 0.1 mg tablet 0.1 mg PO BID PRN Anxiety 30 days 07/12/24 #60 tabs fluoxetine 60 mg tablet 60 mg PO QAM 30 days #30 tabs 07/12/24 hydroxyzine HCl 25 mg tablet 25 mg PO Q6H PRN Anxiety 30 days 07/12/24 #60 tabs lamotrigine 200 mg tablet 200 mg PO DAILY 30 days #30 tabs 07/12/24 ondansetron 8 mg disintegrating 8 mg PO DAILY PRN nausea/vomiting 07/12/24 tablet 30 days #30 tabs prazosin 1 mg capsule 1 mg PO BEDTIME 30 days #30 caps 07/12/24 spironolactone 100 mg tablet 100 mg PO QAM 30 days #30 tabs 07/12/24 sumatriptan succinate 100 mg tablet 100 mg PO DAILY PRN migraine 30 07/12/24 days #30 tabs topiramate 25 mg tablet 25 mg PO DAILY 30 days #30 tabs 07/12/24 trazodone 50 mg tablet 50 mg PO BEDTIME PRN insomnia 30 07/12/24 days #30 tabs diazepam 10 mg tablet 10 mg PO BEDTIME PRN Anxiety 7 07/13/24 days #7 tabs lorazepam 1 mg tablet (Ativan) 1 mg PO BID PRN anxiety 14 days 07/13/24 #14 tabs lorazepam 2 mg tablet (Ativan) 2 mg PO BEDTIME PRN insomnia 14 07/13/24 days #14 tabs Allergies Allergy/AdvReac Type Severity Reaction Status Date / Time No Known Allergies Allergy Verified 10/02/24 11:49 [No Known Allergies*] Review of Systems Review of Systems: Yes all other systems are reviewed and are negative [facility] Past Medical History Attestation statement: The following information was validated with the patient. Source: old records reviewed and nursing notes reviewed Social History Social History Household Members: Other Household Members Other:: Used to live with mom, now hoeless. Housing: Homeless Do you presently have visiting nurse or other home services: No Patient Tobacco Use Status: Current everyday Tobacco user Tobacco use type: Cigarette Substance Use Type: Former Substance User Advance Directives: No Advance Directives Information Provided: Yes Do you have a plan to hurt others: No Plan service: No Sexual orientation: Lesbian/Lott/Homosexual Physical Exam ED Vital Signs: Vital Signs - 24 hr 10/02/24 11:47 10/02/24 13:17 Temperature 98 F 98 F Pulse Rate 66 66 Respiratory Rate 19 19 Blood Pressure 135/73 135/73 Pulse Oximetry 98 98 Oxygen Delivery Method Room Air Room Air BMI result Body Mass Index 29.2 vital signs stable General: Well appearing, in no acute distress. Skin: Warm, dry, intact. No rashes or lesions. Head: Normocephalic, atraumatic. EENT: Hearing is intact b/l. Conjunctiva clear. EOM intact. Cardiac: Chest wall symmetric Lungs: Normal respiratory effort without accessory muscle use Ext: Upper and lower extremities atraumatic, without tenderness, deformity, swelling or erythema Neuro: AOx3. Normal speech. Ambulating with steady gait. Course Course Course Narrative: Urine toxicology positive for buprenorphine. Patient is currently on Suboxone. Urine drug screen otherwise negative. Patient informed of results. Patient informed that this was not a monitored urine collection and not she may be re quired to go to an official drug testing facility. She verbalizes understanding. Provided with note for Cristobal Johansen. Patient has remained stable throughout ED visit today. Discussed worrisome signs and symptoms and when to return to the ED. All questions answered at this time. Patient is agreeable with disposition and stable for discharge. Medical Decision Making Medical Decision Making MDM Narrative: 38 year old female pmhx significant for MDD and PTSD presents to the ED today requesting urine drug screen. Vital signs are stable. She is well-appearing. No acute distress. Plan for urine drug screen and disposition. Differential Diagnosis Differential Diagnoses: The differential diagnosis associated with the presentation includes as above. Admission/Observation Not indicated Lab Data MDM Lab Attestation statement: I reviewed the patient's lab results. As above Labs: Lab Results 10/02/24 Range/Units 12:56 Urine Opiates Screen Not Detected (Not Detect) Ur Buprenorphine Scrn Positive H (Not Detect) ng/mL Ur Oxycodone Screen Not Detected (Not Detect) ng/mL Urine Methadone Screen Not Detected (Not Detect) ng/mL Urine Fentanyl Screen Not Detected (Not Detect) Ur Barbiturates Screen Not Detected (Not Detect) Ur Phencyclidine Scrn Not Detected (Not Detect) Ur Amphetamines Screen Not Detected (Not Detect) U Benzodiazepines Scrn Not Detected (Not Detect) Urine Cocaine Screen Not Detected (Not Detect) U Marijuana (THC) Screen Not Detected (Not Detect) Social Determinants Patient?s care significantly limited by Social Determinants of Health including: Other Social Determinant of Health Critical Care Time Critical Care Time Critical Care Time: No Discharge Plan Discharge Clinical Impression: Encounter for drug screening Patient Disposition: Home, Self-Care Additional Instructions: You presented to the ED today requesting a urine drug screen. Your urine was positive for buprenorphine. otherwise negative. Your urine collection was not monitored today. You were facility may require you to go to an official drug testing facility where this is monitored. Please return with any new or worsening symptoms. In the case of an emergency call 911. Prescriptions: No Action hydroxyzine HCl 25 mg Tablet 25 mg PO Q6H PRN (Reason: Anxiety) 30 Days Qty: 60 0RF clonidine HCl 0.1 mg tablet 0.1 mg PO BID PRN (Reason: Anxiety) 30 Days Qty: 60 0RF lamotrigine 200 mg tablet 200 mg PO DAILY 30 Days Qty: 30 0RF trazodone 50 mg tablet 50 mg PO BEDTIME PRN (Reason: insomnia) 30 Days Qty: 30 0RF sumatriptan succinate 100 mg tablet 100 mg PO DAILY PRN (Reason: migraine) 30 Days Qty: 30 0RF prazosin 1 mg capsule 1 mg PO BEDTIME 30 Days Qty: 30 0RF spironolactone 100 mg tablet 100 mg PO QAM 30 Days Qty: 30 0RF topiramate 25 mg tablet 25 mg PO DAILY 30 Days Qty: 30 0RF ondansetron 8 mg tablet,disintegrating 8 mg PO DAILY PRN (Reason: nausea/vomiting) 30 Days Qty: 30 0RF buprenorphine-naloxone 2-0.5 mg film 1 film sublingual DAILY@1430 30 Days Qty: 30 0RF buprenorphine-naloxone [Suboxone] 8-2 mg film 1 film sublingual DAILY 30 Days Qty: 30 0RF fluoxetine 60 mg tablet 60 mg PO QAM 30 Days Qty: 30 0RF diazepam 10 mg Tablet 10 mg PO BEDTIME PRN (Reason: Anxiety) 7 Days Qty: 7 0RF lorazepam [Ativan] 1 mg tablet 1 mg PO BID PRN (Reason: anxiety) 14 Days Qty: 14 1RF lorazepam [Ativan] 2 mg tablet 2 mg PO BEDTIME PRN (Reason: insomnia) 14 Days Qty: 14 1RF Interventions: ED Discharge Assessment Last Done: 10/02/24 13:17 Discharge Date/Time: 10/02/24 13:18 Print Language: Belize[place]
[2024-10-02 13:14] LABS: Amphetamine Screen Urine Not Detected (Not Detect); Barbiturates, Urine Not Detected (Not Detect); Benzodiazepines Screen Urine Not Detected (Not Detect); Buprenorphine Scr Positive (Not Detect); Cannabinoid Screen Urine Not Detected (Not Detect); Cocaine Screen Urine Not Detected (Not Detect); Fentanyl, urine Not Detected (Not Detect); Methadone Screen, Urine Not Detected (Not Detect); Opiate Screen Urine Not Detected (Not Detect); Oxycodone Screen Urine Not Detected (Not Detect); Phencyclidine Screen Urine Not Detected (Not Detect)
[2024-10-02 13:17] VITALS: BP 135/73; PULSE 66; RESP 19; TEMP 36.6; O2SAT 98
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
== END 2024-10-02 13:18 | disposition home or self-care (01) ==
PROVIDERS: Physician Assistant Medical; Emergency Provider Emergency Medicine; PCP Internal Medicine Nephrology
DX: Z51.81 Encounter for therapeutic drug level monitoring (principal); F17.210 Nicotine dependence, cigarettes, uncomplicated; Z79.899 Other long term (current) drug therapy
CPT/HCPCS: 80307; 99283

== ENCOUNTER 2024-10-05 08:57 | Emergency (ER) | payer MEDICARE, MEDICAID, SELFPAY ==
[2024-10-05 09:03] VITALS: BP 152/83; PULSE 93; RESP 16; TEMP 36.8; O2SAT 93; BMI 29.3
--- NOTE | 2024-10-05 09:21 | PC.NURSE ---
Pt brought back to ED rm, pt currently on the phone, this RN unable to do full assessment at this time.
--- NOTE | 2024-10-05 10:13 | ED_ITS ---
HPI - Skin/Abscess/Foreign Bdy General Chief complaint: Extremity Problem Stated complaint: l index finger infection Time Seen by Provider: 10/05/24 09:39 Source: patient, RN notes reviewed and old records reviewed Mode of arrival: ambulatory History of Present Illness ED Provider: La Del Castillo PA-C HPI narrative: 38-year-old female with no significant past medical history presenting to the ED c/o left index finger pain, swelling/callus formation following a wood splinter 1 month ago. Reports she tried to remove the splinter on her own at the time, however has since had increased pain, swelling, callus over the area over the past few weeks and believes a piece may still be in her finger. Also reports mild numbness over the area. Denies fevers, chills, erythema, ecchymosis, drainage/oozing/bleeding, pallor, paresthesias/ tingling. Reports unsure when last tetanus was. MD complaint: foreign body (wood splinter) Onset (ago): month(s) Tetanus up to date: unsure Location: L hand (index finger) Related Data Previous Rx's ?Medication ?Instructions ?Recorded buprenorphine 2 mg-naloxone 0.5 mg 1 film sublingual DAILY@1430 30 07/12/24 sublingual film days #30 ea buprenorphine 8 mg-naloxone 2 mg 1 film sublingual DAILY 30 days 07/12/24 sublingual film (Suboxone) #30 ea clonidine HCl 0.1 mg tablet 0.1 mg PO BID PRN Anxiety 30 days 07/12/24 #60 tabs fluoxetine 60 mg tablet 60 mg PO QAM 30 days #30 tabs 07/12/24 hydroxyzine HCl 25 mg tablet 25 mg PO Q6H PRN Anxiety 30 days 07/12/24 #60 tabs lamotrigine 200 mg tablet 200 mg PO DAILY 30 days #30 tabs 07/12/24 ondansetron 8 mg disintegrating 8 mg PO DAILY PRN nausea/vomiting 07/12/24 tablet 30 days #30 tabs prazosin 1 mg capsule 1 mg PO BEDTIME 30 days #30 caps 07/12/24 spironolactone 100 mg tablet 100 mg PO QAM 30 days #30 tabs 07/12/24 sumatriptan succinate 100 mg tablet 100 mg PO DAILY PRN migraine 30 07/12/24 days #30 tabs topiramate 25 mg tablet 25 mg PO DAILY 30 days #30 tabs 07/12/24 trazodone 50 mg tablet 50 mg PO BEDTIME PRN insomnia 30 07/12/24 days #30 tabs diazepam 10 mg tablet 10 mg PO BEDTIME PRN Anxiety 7 07/13/24 days #7 tabs lorazepam 1 mg tablet (Ativan) 1 mg PO BID PRN anxiety 14 days 07/13/24 #14 tabs lorazepam 2 mg tablet (Ativan) 2 mg PO BEDTIME PRN insomnia 14 07/13/24 days #14 tabs cephalexin 500 mg capsule 500 mg PO QID 7 days #28 caps 10/05/24 Allergies Allergy/AdvReac Type Severity Reaction Status Date / Time No Known Allergies Allergy Verified 10/05/24 09:03 [No Known Allergies*] Review of Systems Review of Systems: Yes all other systems are reviewed and are negative Constitutional: Constitutional: Reports as per [facility] Past Medical History Attestation statement: The following information was validated with the patient. Source: old records reviewed Social History Social History Household Members: Other Household Members Other:: Used to live with mom, now hoeless. Housing: Homeless Do you presently have visiting nurse or other home services: No Patient Tobacco Use Status: Current everyday Tobacco user Tobacco use type: Cigarette Substance Use Type: Former Substance User Advance Directives: No Advance Directives Information Provided: No service: No Sexual orientation: Lesbian/Lott/Homosexual Physical Exam Vital Signs: Vital Signs: Last Vital Signs Temp 98.2 F 10/05/24 10:44 Pulse 93 10/05/24 10:44 Resp 16 10/05/24 10:44 BP 152/83 H 10/05/24 10:44 Pulse Ox 93 10/05/24 10:44 O2 Del Method Room Air 10/05/24 10:44 BMI result Body Mass Index 29.3 Const: General: cooperative, healthy appearing and no acute distress Orientation/consciousness: patient oriented x3 Limitations: no limitations HEENT: Head: Yes normal to inspection and Yes atraumatic Ears: hearing grossly normal bilaterally General nose exam: Normal external nose present Face and sinus: Yes normal facial exam Eyes: General: appearance normal, both eyes and all related structures EOM: EOMs intact bilaterally Neck: Neck: Yes normal visual inspection and Yes no meningeal signs Resp: Effort & Inspection: normal respiratory effort and no respiratory distress Skin: Rashes: no rashes Wounds: no wounds Neuro: General: patient oriented x3, tone normal and no meningeal signs Cranial nerves: Yes CN's II-XII intact bilaterally Gait exam (Neuro): Normal gait present Extrem: Other: Left 2nd digit mild ttp, callus present, tip of wood splinter visible at center of callus, no bleeding/oozing/erythema/rash, neurovascularly intact General: Yes normal to inspection Left upper extremity: hand Details: tenderness Location: of the 2nd digit, vascular exam Details: radial pulse pr esent and ulnar pulse present; not cool, swelling Location: of the 2nd digit and foreign body; no unusual warmth Course Course Course Narrative: 1000 - removal of remaining FB successful with manipulation & tweezers. 3-4 mm wood splinter successfully removed without difficult. Small amount of purulent drainage s/p removal >plan for PO antibiotics & discharge Results discussed with patient including worrisome signs and symptoms and strict return precautions, and when to return to the emergency department. They verbalized understanding and feel safe for discharge at this time. Medications Administered Discontinued Medications Generic Name Dose Route Start Last Admin Trade Name Freq PRN Reason Stop Dose Admin Diphtheria/Tetanus/Acell Pertussis 0.5 ml 10/05/24 10:17 10/05/24 10:27 Diphth,Pertus(Acell),Tet Adult 0.5 Ml Syringe IM 10/05/24 10:18 0.5 ml .ONCE ONE Administration Medical Decision Making Medical Decision Making [facility] Narrative: 38-year-old female with no significant past medical history presenting to the ED c/o left index finger pain, swelling/callus formation following a wood splinter 1 month ago. Mildly hypertensive, likely d/t pain, other vital signs stable, NAD, nontoxic appearing, PE with tip of wood splint at center of callus to L index finger. No erythema/ecchymosis/drainage/oozing. Neurovascularly intact. Concern for retained FB vs abscess vs soft tissue injury. Low concern for cellulitis, fracture, dislocation. Plan: attempt removal of remaining splinter, update tetanus Differential Diagnosis Differential Diagnoses: The differential diagnosis associated with the presentation includes As above External Record Review External record reviewed: Inpatient record, Office record, Outpatient record, Prior outpatient labs, Prior outpatient radiology, Primary care record and Outside ED record Tests considered The following testing was considered but not selected: As above Prescription Management I considered prescription management with: Pain Medication and Antibiotic Procedures Foreign Body Removal Site: left and hand Description of foreign body: other (wood) Sedation/Analgesia: none Technique: manual removal and removal with forceps Confirmed by:: direct visualization Complications: none Post-procedure exam: awake, alert, normal BP, normal HR and normal O2 sat Neurovascular: normal distal pulse, distal light touch sensation intact, distal motor function normal, no signs of compartment syndrome and no change from pre- procedure Discharge Plan Discharge Clinical Impression: Foreign body finger Patient Disposition: Home, Self-Care Additional Instructions: a small piece of wood was removed from your finger Keflex as an antibiotic please take as prescribed until completion Your tetanus was updated today Practice warm soaks to area 2 to 3 times a day If area begins to look infected, is red, there is pus drainage or you have fever return to the emergency department Follow up with your doctor Prescriptions: New cephalexin 500 mg capsule 500 mg PO QID 7 Days Qty: 28 0RF No Action hydroxyzine HCl 25 mg Tablet 25 mg PO Q6H PRN (Reason: Anxiety) 30 Days Qty: 60 0RF clonidine HCl 0.1 mg tablet 0.1 mg PO BID PRN (Reason: Anxiety) 30 Days Qty: 60 0RF lamotrigine 200 mg tablet 200 mg PO DAILY 30 Days Qty: 30 0RF trazodone 50 mg tablet 50 mg PO BEDTIME PRN (Reason: insomnia) 30 Days Qty: 30 0RF sumatriptan succinate 100 mg tablet 100 mg PO DAILY PRN (Reason: migraine) 30 Days Qty: 30 0RF prazosin 1 mg capsule 1 mg PO BEDTIME 30 Days Qty: 30 0RF spironolactone 100 mg tablet 100 mg PO QAM 30 Days Qty: 30 0RF topiramate 25 mg tablet 25 mg PO DAILY 30 Days Qty: 30 0RF ondansetron 8 mg tablet,disintegrating 8 mg PO DAILY PRN (Reason: nausea/vomiting) 30 Days Qty: 30 0RF buprenorphine-naloxone 2-0.5 mg film 1 film sublingual DAILY@1430 30 Days Qty: 30 0RF buprenorphine-naloxone [Suboxone] 8-2 mg film 1 film sublingual DAILY 30 Days Qty: 30 0RF fluoxetine 60 mg tablet 60 mg PO QAM 30 Days Qty: 30 0RF diazepam 10 mg Tablet 10 mg PO BEDTIME PRN (Reason: Anxiety) 7 Days Qty: 7 0RF lorazepam [Ativan] 1 mg tablet 1 mg PO BID PRN (Reason: anxiety) 14 Days Qty: 14 1RF lorazepam [Ativan] 2 mg tablet 2 mg PO BEDTIME PRN (Reason: insomnia) 14 Days Qty: 14 1RF Referrals: Phillip Bar Jr, [Primary Care Provider] - 1 week Interventions: ED Discharge Assessment Last Done: 10/05/24 10:44 Discharge Date/Time: 10/05/24 10:44 Print Language: Singaporean
[2024-10-05] MEDS: Diphth,Pertus(ACell),Tet Adult 0.5 ML SYRINGE IM (10:27)
--- OUTSIDE RECORDS SUMMARY | 2024-10-05 10:34 | XMS_ITS | Clinical Summary ---
Author Organization [facility] Address [address] [place] [address] Phone Care Team Providers Care Production Team Member Name Role Phone Unavailable Primary Care Provider [...] EST - 07/08/2024 6:12 PM EST Emergency [facility] Emergency [address] [place] [address] Vianney Adair MD Landry, Jonathan P, MD Kim, Tae Hyong, DO Chambers, Patrick, MD Goebel, Mathew, MD Severe recurrent major depression without psychotic features ([facility] V24, [facility] V28) (Primary Dx) Discharge Disposition: [facility] from Last 3 Months Surgical History Surgery Date Site/Laterality Comments OTHER SURGICAL HISTORY PROCEDURE: DENIES PREVIOUS SURGERY Medical History Medical History Date Comments Bipolar disorder ([facility] V24, [facility] V28) Intravenous drug abuse ([facility] V24, [facility] V28) per EMR Cellulitis of hand from EMR, I a nd D in OR 04/09/24 Seizure ([facility] V24, [facility] V28) Major depressive disorder per EM R [...] ECG 12-LEAD STAT 07/08/2024 2:52 PM EST from Last 3 Months Results * ECG 12 lead (07/08/2024 2:52 PM EST) Ventricular Rate ECG 70 BPM GEMUSE Atrial Rate 70 BPM GEMUSE P-R Interval 150 ms GEMUSE QRS Duration 80 ms GEMUSE Q-T Interval 406 ms GEMUSE QTc 438 ms GEMUSE P Wave [place] 45 degrees GEMUSE R [place] 56 degrees GEMUSE T [place] 48 degrees GEMUSE ECG Interpretation Normal sinus rhythm When compared with ECG of 31-JUL-2013 10:16, No significant change was found Confirmed by CAMERON LAI ([id number]) on 07/09/2024 12:35:22 AM GEMUSE 07/08/2024 2:52 PM EST 07/09/2024 12:35 AM EST us Blaine Clark MD ECG ORDERABLES Final Result GEMUSE from Last 3 Months Insurance MEDICARE [place]ICAID - [place]
--- OUTSIDE RECORDS SUMMARY | 2024-10-05 10:34 | XMS_ITS | Data Portability ---
Author Organization [facility] [place], [facility] Address [address] [place] [address] Care Team Providers Care Business Support Name Role Phone APOLONIA JANG Psychiatrist DASH HOGAN Neurologist [facility] Business Editor [facility] OTHER PHILLIP KHAN Primary Care Provider Assessment Encounter Date Assessment Date Assessment LastModified by Organization Details LastModified Time 03/13/2024 03/13/2024 We completed your Medicare Wellness exam today. This was an opportunity to assess your overall well being including your ability to care for yourself, your mobility, memory, mental health, as well as your safety. With advancing age, it is important to assign someone in your life as your Health Care Proxy (HCP). This person should know what is important to you and what your wishes are for medical procedures if you cannot communicate your wishes yourself (severe illness, unconsciousness) . We discussed having a completed Health Care Proxy form today. In addition, today we started a conversation about your End of Life wishes. These conversations will continue over the years. Please consider reading the book, Being Mortal by Neto Booker to help frame future conversations. We discussed the purpose of a MOLST form (Medical Orders for Life Sustaining Treatment) and completed this form if appropriate per your wishes. Vision and Hearing are senses that are critically important as we age. When impaired, they can contribute to memory loss, falls, and make it harder to drive, talk to family and friends, and engage in the world. Please get your vision checked yearly and your hearing checked when you start to notice hearing loss. We discussed approaches to lowering your risk of heart disease and stroke . Your blood pressure is at goal. Your cholesterol is at goal. We discussed cancer screening you may need as well as vaccines to prevent infections. Colon Cancer : Your risk of colon cancer is average. Due for colorectal screening:not needed due to age. If you are not planning to have a colonoscopy please screen with stool cards yearly. Breast Cancer : Breast Cancer Screening (mammography). Next mammogram due: 2023. Cervical Cancer Screening (pap test). Next pap due: 2024. Influenza Vaccine : Flu shot yearly. Tetanus Vaccine : Every 10 years. Due: 2023. The following vaccines are available from your pharmacy: Pneumonia Vaccine : PCV20: once after age 65. Shingles Vaccine : 2 shots after age 50. Covid Vaccine : Make sure you have received the most up to date covid vaccine. Your personal health goal for the year is: Not available 03/15/2024 07:41:51 05/04/2024 05/04/2024 General Health Maintenance / Followup Plans: -Needs PT-[facility] to [facility] for breast exam -US q 6 months. -Call back with appointment date for breast ultrasound to arrange PT1. -Consider setting up recurring PT1 for biannual breast ultrasounds. Not available 05/05/2024 07:17:23 06/09/2024 06/09/2024 Assessment: Patient presents for treatment [...] tissue mobility as well as reduced pain. [email or web address] Not available 06/09/2024 13:17:43 06/16/2024 06/16/2024 Assessment: Patient tolerating exercises performed [...] tissue mobility as well as reduced pain. [email or web address] Not available 06/16/2024 11:45:54 Plan of Treatment Reminders Order Date Submit Date Provider Last Modified By Organization Details Last Modified Time Details Appointments LAB Follow-U p 2024 11:30A M [facility] Lab Not available Not available Not available Wellness Visit 30 2024 01:30P M PHILLIP KHAN, DO Not available Not available Not available Lab lipid panel, serum 2023 024 [facility], [address] [place] [address], [address], 09/04/2024 16:15:26 Referral None recorded . Procedures None recorded . Surgeries None recorded . Imaging None recorded . Medication Orders clonidin e HCl 0.1 mg tablet 2023 024 [facility]acy #[id number], [address] [place], [address], 05/04/2024 10:09:40 meloxica m 15 mg tablet 2023 024 [facility] #[id number], [address] [place], [address], 05/04/2024 10:07:28 ProAir HFA 90 mcg/actu ation aerosol inhaler 2023 024 [facility] #[id number], [address] [facility] [place], [address], 03/13/2024 14:06:49 melatoni n 3 mg tablet 2023 024 [id number], [address] [place], [place], [id number], 09/08/2023 10:49:15 topirama te 25 mg tablet 2023 024 [id number], [address] [place], [place], [id number], 09/08/2023 10:45:58 sumatrip grimes 100 mg tablet 2023 024 [facility][id number], [address] [place], [place], [id number], 09/08/2023 10:45:58 ondanset bernardo 8 mg disinteg rating tablet 2023 024 [facility][id number], [address], [place], [id number], 09/08/2023 10:45:57 Patient TargetsNo targets recorded. Patient Instructions Encounter Date Encounter Id Patient Instructions Last Modified By Organization Details Last Modified Time 09/08/2023 [id number] I am aware of [facility] discharge medications, the medication list above has been reconciled with those medications and reflects my understanding of an up to date medication list for this patient. [email or web address] Not available 09/08/2023 09:50:27 Reason for Referral None Reported. Results Created Date Observation Date Name Description Value Unit Range Abnormal Flag Note LastModifiedBy Organization Detail LastModifiedTime 11/22/19 24 11/22/2023 US, rosa maria hoskins No observ ation record ed. [facility] [address], [place], [address], 12/17/2023 13:53:53 05/29/20 24 05/29/2024 US, kaees fidelia No observ ation record ed. [facility] [place] [address], [place], [address], 06/05/2024 11:43:50 Result Notes None recorded. Problems Name Problem SNOMED Code Status Onset Date Resolution Date Notes Provider Name and Address Organization Details Recorded Time Bipolar disorder 56319086 [facility] 3 13:59:15 [facility]en [facility] Completed 04/19/2014 Melissa Russell, [address], [place], [address] [place] [address] 6 13:45:15 Disorder of vision 70106438 Active [facility] 3 13:59:15 Chronic hepatiti s C 498855123 Active [facility] 3 13:59:15 Tobacco dependen ce syndrome 31222697 Active [facility] 3 13:59:15 History of attempte d suicide 947414035 Active by overdose [facility] 3 13:59:15 Seizure disorder 852386507 Active abnormal EEG, workup in progress [facility] 3 13:59:15 Type B viral hepatiti s 83409936 Active per discharg e 07/20/15 [facility] 3 13:59:15 Tobacco user 499623916 Active 2018 [facility] 3 13:59:15 Migraine 91076521 Active 2018 [facility] 3 13:59:15 Atypical chest pain 843423308 Active 2019 KASSANDRA Blake, [facility] [place] 3 13:59:15 Hidraden itis suppurat amina 39554683 Active 2019 KASSANDRA Blake, [facility] [place] 3 13:59:15 Depressi ve disorder 83639132 Active [facility] 3 13:59:15 Acute health crisis 616663776 Active 2022 [facility] Vale Ringer [facility], [facility] [place] 3 11:04:29 Major depressi ve disorder 646729222 Active 2022 [facility] Vale Ringer [facility], [facility] [place] 3 11:04:52 Current drinker 610684 Active 2022 Alcohol use, [facility] Vale Ringer [facility], [facility] [place] 3 11:05:20 Opioid dependen ce 45353791 Active 2022 [facility] D/[facility]. Vale Ringer [facility], [facility] [place] 3 11:05:44 Mood disorder 59819772 Active 2023 per [facility] discharg e 01/21/24. Maggi NITZA Dejesus null, [facility] [place] 4 08:29:56 Posttrau matic stress disorder 33427312 Active 2023 per [facility] discharg e 01/21/24. Maggi Dejesus LPN null, [facility] [place] 4 08:30:18 Alcohol dependen ce 79394732 Active 2023 per [facility] discharg e 01/21/24. Maggi NITZA Dejesus evelin, [facility] [place] 4 08:30:35 Mass of left breast 14989415416 938287 Active [address]IP KHAN [address], [facility] [place], [address] [place] [address] 4 07:15:58 Problem Notes None recorded. Procedures Surgical History Date Name Laterality Status Provider Name and Address Organization Details Recorded Time 06/16/20 73750: Therapeutic Exercise completed FRANK RIVERA DPT [address] [place], [address], [facility] 06/16/2024 12:05:09 06/16/20 24 Physical Activity Counselling completed FRANK RIVERA DPT [address] [place], [address], [facility] 06/16/2024 11:07:44 06/16/20 24 Treatment and Advice completed FRANK RIVERA DPT [address] [place], [address], [facility] 06/16/2024 11:07:44 06/09/20 24 Physical Activity Counselling completed FRANK RIVERA DPT [address] [place], [address], [facility] 06/09/2024 10:29:43 06/09/20 24 20337: PT Eval Low Complexity completed FRANK RIVERA DPT [address] [place], [address], [facility] 06/09/2024 10:29:43 06/09/20 24 Treatment and Advice completed FRANK RIVERA DPT [address] [place], [address], [facility] 06/09/2024 11:52:07 05/04/20 24 Smoking cessation counseling completed Cira Michael [facility] [place] 05/04/2024 09:36:27 03/13/20 24 Smoking cessation counseling completed Cira Michael [facility] [place] 03/13/2024 13:34:00 03/13/20 24 Medicare Wellness Visit completed Cira Michael [facility] [place] 03/13/2024 13:32:58 03/13/20 24 Alcohol overuse counseling completed Cira Michael [facility] [place] 03/13/2024 13:34:08 02/09/20 24 Smoking cessation counseling cancelled Cira Michael [facility] [place] 02/09/2024 12:32:49 02/01/20 24 Post hospital/SNF follow-up/Transiti onal Care cancelled NILDA LR LTZ, [address], [address], [facility] 02/01/2024 05:30:05 11/04/19 22 Smoking cessation counseling completed Melissa Russell, [address], [address], [facility] 11/18/2021 17:48:27 08/06/19 22 Smoking cessation counseling completed Melissa Russell, [address], [address], [facility] 08/06/2021 19:51:14 08/06/19 22 Alcohol use screening completed Chery Gonzales [place] [facility] [place] 08/06/2021 08:22:20 08/06/19 22 Cardiovascular disease risk reduction counseling completed Chery Gonzales MA [facility] [place] 08/06/2021 08:22:20 08/06/19 22 Medicare Annual Wellness Visit completed Melissa Russell [address], [address], [facility] 08/06/2021 19:51:12 05/13/20 21 Smoking cessation counseling completed Charis Adair NP [address] [place] [address], [address], [facility] 05/13/2021 11:37:57 05/03/20 20 Smoking cessation counseling completed Chery Gonzales MA [facility] [place] 05/03/2020 14:24:15 05/03/20 20 Carbon Monoxide Testing completed Chery Gonzales MA [facility] [place] 05/03/2020 14:24:15 05/03/20 20 prevention-annual alcohol misuse screening completed Chery Gonzales MA [facility] [place] 05/03/2020 14:18:13 03/02/20 20 Smoking cessation counseling completed Lexy Lopez [facility] 03/02/2020 14:06:52 03/02/20 20 Carbon Monoxide Testing completed Lexy Lopez CMA [facility] [place] 03/02/2020 14:06:52 02/29/20 20 Smoking cessation counseling completed Melissa Russell [address], [address], [facility] 02/29/2020 10:15:18 07/21/19 20 Smoking cessation counseling completed Melissa Russell [address], [address], [facility] 07/23/2019 15:06:02 07/21/19 20 Carbon Monoxide Testing completed Melissa Russell [address], [address], [facility] 07/21/2019 10:14:22 04/14/20 19 Smoking cessation counseling completed [facility] 04/14/2019 11:33:44 04/14/20 19 Medicare Wellness Visit completed [facility] 04/14/2019 11:33:09 04/14/20 19 Carbon Monoxide Testing completed [facility] 04/14/2019 11:33:44 01/31/20 19 Smoking cessation counseling completed Melissa Russell [address], [address], [facility] 01/30/2019 09:09:13 01/31/20 19 Carbon Monoxide Testing completed Melissa Russell [address], [address], [facility] 01/30/2019 09:09:13 07/29/19 19 Smoking cessation counseling completed Lexy Alfaro LPN [facility] [place] 07/29/2018 09:53:52 07/29/19 19 Carbon Monoxide Testing completed Lexy Alfaro LPN [facility] [place] 07/29/2018 09:53:52 07/26/19 19 Smoking cessation counseling completed Sylvia Clemons [facility] [place] 07/26/2018 15:27:16 07/26/19 19 Carbon Monoxide Testing completed Sylvia Clemons [facility] [place] 07/26/2018 15:27:17 01/20/20 18 Smoking cessation counseling completed Bibiana Encinas [facility] [place] 01/19/2018 10:32:32 01/20/20 18 Carbon Monoxide Testing completed Bibiana Encinas [facility] [place] 01/19/2018 10:32:32 10/21/19 18 Smoking cessation counseling completed Abigail Kong MA [facility] [place] 10/20/2017 09:48:40 10/21/19 18 Carbon Monoxide Testing completed Abigail Kong MA [facility] [place] 10/20/2017 09:48:41 08/26/19 18 Smoking cessation counseling completed Bibiana Encinas [facility] [place] 08/25/2017 12:27:03 08/26/19 18 Carbon Monoxide Testing completed Bibiana Encinas [facility] [place] 08/25/2017 12:27:04 04/05/20 17 Smoking cessation counseling completed Lexy Lopez [facility] 04/05/2017 12:11:20 04/05/20 17 Carbon Monoxide Testing completed Lexy Lopez [facility] 04/05/2017 12:11:21 04/17/20 16 Smoking cessation counseling completed Maggi Baltazar MA [facility] [place] 04/17/2016 10:48:44 11/29/19 16 Carbon Monoxide Testing completed Christina Knowles MA [facility] [place] 11/29/2015 11:47:05 10/23/19 16 Carbon Monoxide Testing completed Christina Knowles MA [facility] [place] 10/23/2015 12:20:36 04/19/20 14 Smoking cessation counseling completed Juliette Salgado MA [facility] [place] 04/19/2014 15:29:49 02/17/20 14 Smoking cessation counseling completed Demetra Miller MA [facility] [place] 02/16/2014 09:12:19 11/01/19 14 Smoking cessation counseling completed Lauren Smyth [facility] [place] 10/31/2013 15:51:12 03/14/20 13 Medicare Wellness Visit completed Juliette Salgado MA [facility] [place] 03/14/2013 11:45:33 Imaging Results Imaging Date Name Status LastModified by Organiz ation Details LastModified Time 11/22/2023 US, breast, unilateral completed [facility] [address], [place], [address], 12/17/2023 13:53:53 05/29/2024 US, breast completed [facility] [place] [address], [place], [address], 06/05/2024 11:43:50 Procedure Notes None recorded. Medical Equipment None Reported. Allergies Allergen ID Allergen Name Allergen Category Reaction Reaction Severity Criticality Documentation Date Start Date Code Code System Note Provider Name and Address Organization Details Recorded Time 943492 Suboxone medicatio n rash Not available Not available 03/14/2013 18129 0 RxNorm hannah arredondo / zohra Knowles MA [facility] 6 12:00:59 Medications Name Sig Start [...] tab 0.1mg active Not Available Not Available Not Available prazosin hcl cap 2mg 10/22 completed [...] Not Available fluoxetin e 40 mg capsule take 1 capsule by mouth once daily active Not Available Not Available No t [...] t Available clonidine HCl 0.1 mg tablet take 1 tablet by mouth twice a day if needed active Not Available Not Available No t Available acetamino phen 325 mg tablet TAKE 2 [...] Not Available lamotrigi ne 200 mg tablet take 1 tablet by mouth once daily active Not Available Not Available No t [...] Available Not Available trazodone 50 mg tablet take 1 tablet by mouth at bedtime active Not Available [...] Not Available sumatript an 100 mg tablet take 1 tablet by mouth once daily if needed for migraine s TAKE AT THE ONSET OF HEADACHE active Not Available Not Available No t Available chlorprom azine 100 mg tablet TAKE 1 TABLET BY MOUTH AT BEDTIME 04/17 completed Not Available Not Available Not Available prazosin 1 mg capsule take 1 capsule by mouth [...] Available Not Available meloxicam 15 mg tablet take 1 tablet by mouth once daily if needed for 21 DAYS active Not Available Not Available No t Available phenazopy ridine 200 mg tablet take 1 tablet by mouth three times a day for 3 days if needed 03/26 completed Not Available Not Available Not Available spironola ctone 100 mg tablet take 1 tablet by mouth every morning active Not Available Not Available No t [...] Not Available topiramat e 25 mg tablet take 1 tablet by mouth once daily active Not Available Not Available No t [...] ondansetr on 8 mg disintegr ating tablet take 1 tablet by mouth once daily if needed for nausea and vomiting active Not Available Not Available No t [...] Available Not Available lorazepam 2 mg tablet take 1 tablet by mouth at bedtime active Not Available [...] Available Not Available lorazepam 1 mg tablet take 1 tablet by mouth twice a day active Not Available Not Available No t Available diazepam 10 mg tablet take 1 tablet by mouth at bedtime if needed for insomnia active Not Available Not Available No t [...] Suboxone 8 mg-2 mg sublingua l film dissolve 1 FILM under the tongue once daily TOGETHER WITH 2 MG FILM active Not Available Not Available No t Available Suboxone 2 mg-0.5 mg sublingua l film dissolve 1 FILM under the tongue once daily TOGETHER WITH 8 MG FILM active Not Available Not Available No t [...] Not Available Not Available Not Available Fluzone 3025-1106 45 mcg (15 mcg x 3)/0.5 mL intramusc ular suspensio n TO BE ADMINIST ERED BY PHARMACI ST FOR IMMUNIZA TION active Not Available Not Available No t Available Rexulti 0.5 mg tablet take 1 tablet by mouth once daily active Not Available Not Available No t Available Vitals Date Recorded Body height Body mass index (BMI) Body weight Heart rate Oxygen saturation Oxygen saturation in Arterial blood by Pulse oximetry Systolic blood pressure Diastolic blood pressure Provider Name and Address Organization Details Last Updated DateTime 4 161.29 cm 32.5 kg/m2 41795.2 8 g 75 /min 99 % 99 % 106 mm[Hg] 60 mm[Hg] Charis Cabrera MA [facility] [place] 4 10:17:10 Date Recorded Body height Body mass index (BMI) Body weight Oxygen saturation Oxygen saturation in Arterial blood by Pulse oximetry Heart rate Systolic blood pressure Diastolic blood pressure Provider Name and Address Organization Details Last Updated DateTime 4 160.02 cm 28.8 kg/m2 91524.7 6 g 99 % 99 % 98 /min 118 mm[Hg] 74 mm[Hg] Cira Michael [facility] [place] 4 13:47:16 Date Recorded Body height Body mass index (BMI) Body weight Oxygen saturation Oxygen saturation in Arterial blood by Pulse oximetry Heart rate Systolic blood pressure Diastolic blood pressure Provider Name and Address Organization Details Last Updated DateTime 4 160.02 cm 29.1 kg/m2 13025.8 5 g 98 % 98 % 86 /min 124 mm[Hg] 80 mm[Hg] Cira Michael [facility] [place] 4 09:40:51 Social History Question Answer Notes LastModified by Organizat ion Details LastModified Time Tobacco Smoking Status Current Every Day Smoker [facility] 09/18/2020 16:15:47 What Is Your Level Of [...] Heroin Use, Reports Negative HIV Appx [employer] [address] Information not available 03/14/2013 Do You Or Have You Ever Used E-cigarettes Or Vape? 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 Disability For Psych Problems,f Or The Last 4 Years [place] [address] Information not available 03/14/2013 Have There Been Any Changes To Your Family Or Social Situation? Yes Brother Is Trying To Get A Liver Transplant! Has Seperated From [facility], Is Homeless Information not available 03/13/2024 How Many Days In The Past Year Have You Had A Heavy Drinking Consumption (4+ Female, 5+ Male)? 0 [place] [address] Information not available 03/14/2013 Are There Any Guns Present In Your Home? No Information not available 03/14/2013 Do You Use Insect Repellent Routinely? No Information not available 08/06/2021 Live Alone Or With Others? With Others Information not available 05/03/2020 CCM Consent Discussion 10/20/2017 gabe Information not available 10/20/2017 Marital Status Single Has Off And On Female Partner- 5/2 18- IN A RELATIONSHIP [place] [address] Information not available 03/14/2013 Mosquito Repellent Used [...] of Abnormal Pap N Current Control Method Approximate Frequency of Cycle (Q days) Date of LMP 07/23/2021 Obstetrics History GPAL:G 0 P 0 0 0 0 Immunizations Vaccine Type Date Status Note Provider Nam e and Address Organization Details Recorded Time influenza, unspecified formulation 3 completed Breonna Yan MA [facility] 07/16/2022 13:59:15 Influenza, split virus, quadrivalent, PF 9 completed Not Available [facility] 07/08/2019 02:30:26 Influenza, split virus, quadrivalent, PF 1 completed Charis Adair, CHRIS [address] [place] [address], [address], [facility] 05/13/2021 11:33:01 Influenza, split virus, quadrivalent, PF 2 completed Melissa Russell [address], [address], [facility] 04/19/2022 12:34:21 Influenza, split virus, quadrivalent, PF 3 completed Melissa Russell [address], [address], [facility] 03/06/2023 12:19:47 Influenza, split virus, trivalent, PF 4 completed PHILLIP KHAN, DO [address] [place] [address], [place], [address], [facility] 03/15/2024 07:39:47 Tdap 4 completed NITZA Soriano, [facility] [place] 08/06/2023 06:47:06 Past Encounters Encounter ID Performer Location Encounter Start Date Encounter Closed Date Diagnosis/Indication Diagnosis SNOMED-CT Code Diagnosis ICD10 Code Diagnosis Note [id number] Lauren PHAN, [facility], [address] [place] [address] 03/14/2013 11:01:40 03/14/2013 12:56:32 Adult health examination [id number] see Risk Assessment and Lifestyle Change Counseling section above Inadequate time to fully address lifestyle due to her pressing complaint of new, alarming vision changes, the forms she needed filled out, Records requested to ensure UTD on screening tests Did Pap and gc/chl today Counseling [id number] Chronic hepatitis C 732660954 From [facility]: states this cleared., with no treatment. Screening for malignant neoplasm of cervix 655219593 Bipolar disorder 92515483 on buspar, risperdal 1 mg qhs, clonazepam 2 mg BID, follows with Dr. Frausto. Is on clonidine and is about to run out; refilled until she gets in to see Dr Frausto again. Nondepende nt opioid abuse in remission 416031212 Hx IV heroin abuse, [facility] 16119548 Has noted light sensitivit y, floater in L visual field x 4 days, she attributes this to risperdal? I called over and got her an appt with optho for just after our visit - Dr. Sandoval at [facility] , with careful instructio ns on how to get there. Tobacco de pendence syndrome 08709470 inadequate time to cover this today [id number] Sarah Fernandez MD FP, [facility], [address] [place] [address] 10/31/2013 15:41:20 11/01/2013 10:18:06 Tobacco user 497777480 Not ready to quit - too much stress, re-visit at later date Bipolar disorder 98300812 unable to do med rec - patient states no idea what she's taking but is self administer ing. Will finish IOP next week. Records from recent psychiatri c hosp for overdose requested, [facility] signed for this and [place] [facility] program to coordinate care. States Dr Frausto won't see her any longer due to + UDS. [facility] would likely be a very good option for patient. Continue close follow up - return next week to see new PCP Dr Delaney. History of attempted suicide 091710275 feels safe at the present, no thought of self harm, knows to call [employer] if this develops. [id number] Zenia PHAN, [facility], [address] [place] [address] 02/16/2014 08:39:51 02/16/2014 10:29:04 Tobacco user 097348918 Cutting down, would not add patches or pills to current regimen due to comorbidit ies. Bipolar disorder 65522157 Patient is seeing a psychiatri st who prescribes all medication s. Chronic hepatitis C 676191276 Labs were drawn inpatient therefore patient declines labs today, request records. Polysubstance abuse [id number] Now in rehab, congratula cuate on her success. Seizure disorder 850268488 Possibly lifelong unclear duration, d/w patient and mother re: I will refill keppra until she is able to see neurology, when to return to the ER. [id number] Zenia PHAN, [facility], [address] [place] [address] 04/19/2014 15:09:58 04/20/2014 09:05:03 Tobacco user 612535286 Cutting down, would not add patches or pills to current regimen due to comorbidit ies. Bipolar disorder 38408384 Patient is seeing a psychiatri st who prescribes all medication s. Meds will be reconciled when records are received. Polysubstance abuse 487563099 Continue interventi ons. Seizure disorder 398112171 With abnormal EEG, referred back to neurology. Advised patient she should not drive. [id number] Melissa Russell, [facility] [address] [place] [address] 10/23/2015 11:39:22 10/23/2015 13:25:41 Premenstrual dysphoric disorder 493467 N94.3 pt and mom requesting trial of either depo provera or OCPS to minimize menses. until consistent care is establishe d, advised ocps due to easier discontinu ation. Seizure 25264498 R56.9 pt with observed seizure episodes during medication transition s, possible withdrawal from methadone versus epilepsy, has not yet followed up with neurology. Anxiety 19066491 F41.9 pt goes to ER [facility] twice per week due to panic, reviewed with pt and mom, limited efficacy.u ivett of lorazepam in this instance. However, pt is titrating up on mood stablizing meds. To review rx with suboxone provider before filling. rx written for twice weekly, and pt to follow up in 1 week. sooner if notes increased need of medication . [id number] Melissa Russell, BETTINA-BENI , [facility], [address] [place] [address] 11/29/2015 09:56:58 12/02/2015 09:18:52 Tobacco user 992036962 Z72.0 unable to address as pt left visit before closure. Anxiety 43158908 F41.9 pt endorses two days of increased anxiety, reports only ativan works, I stated I would coordinate with Dr. Cao ([facility]) but would not be prescribin g ativan at today's visit. Pt started to cry and stated I want to go left visit without plan or closure. [id number] BETTINA Alicia , [facility], [address] [place] [address] 04/17/2016 10:31:02 04/17/2016 11:15:29 Cigarette smoker 89720909 F17.210 Tobacco user 674080538 Z 72.0 Discussed smoking cesssation X 3 m. Not ready to quit despite risks to health which were discussed. Declines any medication or aids to help w/smoking cessation. Bipolar disorder 6867378 4 F31.9 To F/U w/ [employer]. At length discussion regarding use of / danger/pot ential adverse SE of benzos for anxiety. Will not order these meds. [id number] , [facility], [address] [place] [address] 04/05/2017 11:36:49 04/06/2017 08:04:28 Cigarette smoker 98346433 F17.210 Tobacco user 261366449 Z 72.0 Seizure disorder 1573345 02 G40.909 pt wtih history of presumed seizures while tapering from methadoneh as not been on antiepilep tics for years,note s nocturnal epsidoes of spasticity followed by LOC.will refer to neuro. [id number] [facility], [address] [place] [address] 08/25/2017 12:08:29 08/25/2017 12:40:28 Cigarette smoker 15748610 F17.210 declines interventi ons today. Tobacco user 428131228 Z 72.0 Onychomycosis 081944036 B35.1 will prescribe topical medication s, concerned about liver toxicity of oral agnets. Loss of hair 484657593 L 65.9 per pt request, possible mechanical trauma. Exposure t o communicable disease 516504546 Z20.9 RTC in 2 weeks to review results. Chronic hepatitis C 1283 87585 B18.2 known carrier, working on sobriety. [id number] BAIRON Albarran , [facility], [address] [place] [address] 10/20/2017 09:28:57 10/20/2017 10:48:03 Adult health examination 591037054 Z00.00 see Risk Assessment and Lifestyle Change Counseling section above. Counseling 348061012 Z71 .9 Depression screening 171 194723 Z13.89 depression screening tool administer ed, entered into emr, scored and discussed, time greater than 7.5 minutes. Reports feeling more stable. No hospitaliz ations since 04/2017. Denies SI/HI. Compliant with medication s. Continue weekly therapy (in care at [facility]) and prescribed medication s. Cigarette smoker 5275839 7 F17.210 declines interventi ons today. Tobacco user 668958402 Z 72.0 Smoking 10 cigarettes per day. Would like to reduce to 7 per day. Overweight 018889839 E66 .3 7 lbs weight gain over past month. Associates with increase in carbs, sugar, and fatty foods. Increase water intake, decrease fatty and foods high in carbs and sugar. Labs below to assess blood sugar levels and possible metabolic disorder. Chronic hepatitis C 1283 05876 B18.2 known carrier, working on sobriety. Not ready to contact GI specialist due to actively drinking Screening for malignant neoplasm of cervix 081752274 Z12.4 Last PAP 2012, normal. PAP today. 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 Opioid dep endence in remission 023123328 F11.21 stable on suboxone. [id number] BAIRON Albarran , [facility], [address] [place] [address] 01/19/2018 10:21:10 01/20/2018 13:35:58 Cigarette smoker 82583151 F17.210 declines interventi ons today. Tobacco user 345946671 Z 72.0 Smoking 10 cigarettes per day. pt notes this is primary mode of stress relief, does note increased imporatanc e Chronic hepatitis C 1283 22037 B18.2 known carrier, working on sobriety. referred to GI states treatment is motivating . Migraine 04689624 G43.90 9 will trial triptan,ib uprofen ineffectiv e,due to frequency of headaches consider preventati ve measures Constipation 09684151 K5 9.00 chronic issue, add miralax. [id number] BAIRON Albarran , [facility], [address] [place] [address] 07/26/2018 15:07:10 07/26/2018 16:01:49 Cigarette smoker 13454797 F17.210 declines interventi ons today. Tobacco user 429137622 Z 72.0 Smoking 10 cigarettes per day. pt notes this is primary mode of stress relief, does note increased importance Abscess of skin and/or subcutaneous tissue 37011708 L02.91 palpable mass with superficia l cellulitis hx of abcess similarapp ly warm compressfo llow up in 48/72 hours. [id number] BETTINA Sanchez, [facility], [address] [facility] [place] [address] 07/29/2018 09:20:48 07/29/2018 11:55:27 Folliculitis 24341238 L73.9 May use mupirocin as needed for groin area Abscess 368720686 L02.91 Complete doxyResolv ing without complicati onFollow up in a week when antibiotic is complete Cigarette smoker 1601178 7 F17.210 Tobacco user 696839296 Z 72.0 Smoking 1 ppdSmoking lessReview ed options for smoking cessationI nterested in trying Nicotrol cartridge [id number] BETTINA Sanchez, [facility], [address] [place] [address] 08/05/2018 09:55:11 08/05/2018 10:49:08 Abscess 962647534 L02.91 Completed doxyResolv ing without complicati on, but she has missed a few doses and there is an approx 1 cm cyst remainingW ill extend doxy for another weekFollow up in a week for unresolved symptoms [id number] BAIRON Albarran, [facility], [address] [place] [address] 01/30/2019 08:26:17 01/30/2019 09:25:04 Tobacco user 424637542 Z72.0 Smoking 10 cigarettes per day. 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 Cigarette smoker 4753861 7 F17.210 declines interventi ons today.repo rts not motivated today. Eczema 53358873 L30.9 Onychomycosis 265608232 B35.1 will prescribe topical medication s, concerned about liver toxicity of oral agnets. Wheezing 70173708 R06.2 [id number] BAIRON Albarran , [facility], [address] [place] [address] 04/14/2019 11:30:59 04/14/2019 14:01:46 Adult health examination 057228607 Z00.00 see Risk Assessment and Lifestyle Change Counseling section above.pap due 2020 Counseling 627740295 Z71 .9 Depression screening 171 875250 Z13.89 depression screening tool administer ed, entered into emr, scored and discussed, time greater than 7.5 minutes Cigarette smoker 3357341 7 F17.210 declines interventi ons today.repo rts not motivated today. Tobacco user 863069589 Z 72.0 Smoking 10 cigarettes per day. 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 Opioid dep endence in remission 918149049 F11.21 stable on suboxone. Seizure disorder 6681182 02 G40.909 pt with history of presumed seizures while tapering from methadoneh as not been on antiepilep tics for years,note s nocturnal episodes of spasticity followed by LOC. 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 Overweight 547258240 E66 .3 7 lbs weight gain over past month. Associates with increase in carbs, sugar, and fatty foods. Increase water intake, decrease fatty and foods high in carbs and sugar. Labs below to assess blood sugar levels and possible metabolic disorder. [id number] Caroline Moss , [facility], [address] [place] [address] 07/21/2019 09:30:52 07/21/2019 10:21:13 Migraine 50949827 G43.909 given history of possible seizure, thought drug withdrawal thought to be cause, referral to neurologly is warranted Eczema 44668422 L30.9 Onychomyco sis of toenails 572615458 B35.1 referral to podiatry Headache 09611200 R51 referral to neurology Cigarette smoker 1491271 7 F17.210 declines interventi ons today.repo rts not motivated today. Tobacco user 378524771 Z 72.0 Smoking 10 cigarettes per day. pt notes this is primary mode of stress relief, does note increased importance Abscess 565318711 L02.91 improving, apply moist heat, rtc for worseningc ont abx as prescribed [id number] Dash Bowers DPM Podiatry, [facility] [address] [place] [address] 08/16/2019 09:56:36 08/16/2019 10:57:24 Onychomycosis 186036467 B35.1 Tinea pedis 5008076 B35. 3 [id number] Summer Quigley PA-C , [facility], [address] [place] [address] 12/08/2019 14:02:10 12/12/2019 09:14:55 Migraine 28498638 G43.909 Has about 1-2 migraines per week. Meds refilled. Advised to push fluids. If frequency increase, can trial a daily preventati ve medication . Opioid dep endence in remission 539724814 F11.21 on Suboxone and will be completely clean/sobe r for 1 year next month. Nicotine dependence 5629 4008 F17.200 Declines pharmacolo gical or other tx at this time. Atypical chest pain 1025 18191 R07.89 Apparently evaluated by paramedics from [facility], but pt declined transport. States BP was elevated.S sally in office visit next week with Melissa or other provider for exam, BP readings, EKG, etc.Has family h/o CAD.May end up needing stress test.I will see if records are available, but pt was not transporte d so may not be. [id number] KYLE Delvalle, [facility], [address] [place] [address] 12/29/2019 11:07:54 01/01/2020 10:43:16 Bipolar disorder 04955366 F31.9 and PTSD and polysubsta nce abuse in remission: follows with psychiatry and therapist. Overall mood stable. Atypical chest pain 1025 48970 R07.89 Apparently evaluated by paramedics from [facility], but pt declined transport. States BP was elevated. BP wnl today.Sxs now mostly resolved; EKG wnl today.Has family h/o CAD.Monito r for now, if sxs return, can order further evaluation with stress test. Migraine 67474785 G43.90 9 With h/o chronic migraines, headaches, h/o sz (thought perhaps secondary to withdrawal from polysubsta nces) will refer back to neurology, Dr. Hogan and I gave pt the office phone number also. Nicotine dependence 5629 4008 F17.200 Declines pharmacolo gical or other tx at this time. Discussed smoking cessation for 3 minutes. With significan t psychiatri c h/o bipolar disorder and PTSD discussed nicotine replacemen t methods may be best tolerated. [id number] Melissa Russell, BETTINA-BNEI , [facility], [address] [place] [address] 02/29/2020 09:49:07 02/29/2020 12:52:54 Cigarette smoker 37146327 F17.210 declines interventi ons today.repo rts not motivated today. Tobacco user 923223609 Z 72.0 Smoking 10 cigarettes per day. pt notes this is primary mode of stress relief, does note increased importance Headache 63553220 R51 referral to neurology Migraine 18828982 G43.90 9 triptans help , followed by neurology, plans to follow with neurology [id number] Vee Saba , [facility], [address] [place] [address] 03/02/2020 14:03:32 03/02/2020 14:35:48 Cigarette smoker 42591405 F17.210 Tobacco user 823031696 Z 72.0 Urinary tr act infectious disease 38017805 N39.0 [id number] Lori Kellogg NP , [facility], [address] [place] [address] 03/26/2020 16:17:39 03/28/2020 15:38:55 Ankle pain 705700514 M25.579 Knee pain 45210590 M25.[address] Lugo - likely fpc overcompen sation due to left leg injury Abscess 096668493 L02.91 warm soaks/comp resses qid treat with doxy for 7d bid - then take 1 daily for suspected hydradenit is suppuritiv a= f/u with PCP for ongoing care and monitoring . Suggest probiotics . Call if abscess larger in size, more painful, other concerns. [id number] Jsas Lugo MD Sports Medicine, [address] [address] 04/15/2020 12:31:19 04/19/2020 11:52:35 Pain in lower limb 46221964 M79.605 M79.604 Alona is a 34-year-ol d female with bilateral lower leg pain that I believe is secondary to medial tibial stress syndrome and/or biomechani jenny overload of her lower extreme any musculatur e. She has pes planus bilaterall y which I feel likely predispose s her to this problem. She also may have altered gait patterns since her surgery and plating of her left ankle. She does not have pain jumping today or evidence of a stress fracture on exam. I reviewed all of this with her today as well as discussing the treatment plan. I have advised having x-rays of her lower legs and knees done to evaluate for any bony pathology contributi ng to her discomfort . We discussed physical therapy but have chosen to defer this at this time. I advised a trial of over the counter orthotics to see if this helps with her pain. She may eventually need custom orthotics. She will try the OTC orthotics and see if they help with her symptoms and f/u in 8 weeks if she continues to have pain or problems. [id number] Melissa Russell, BETTINA-BENI , [facility], [address] [place] [address] 05/03/2020 14:17:46 05/06/2020 12:55:21 Adult health examination 952188435 Z00.00 see Risk Assessment and Lifestyle Change Counseling section above.pap due 2020 Counseling 300041844 Z71 .9 Depression screening 171 004636 Z13.89 depression screening tool administer ed, entered into emr, scored and discussed, time greater than 7.5 minutes Screening for alcohol abuse 163566589 Z13.39 continues with sobriety Dry skin 38223972 L85.3 likely eczema Migraine 08716565 G43.90 9 in care with neurology Cigarette smoker 2225477 7 F17.210 declines interventi ons today.repo rts not motivated today. Tobacco user 251505718 Z 72.0 Smoking 10 cigarettes per day. pt notes this is primary mode of stress relief, does note increased importance Hidradenit is suppurativa 11962043 L73.2 currently developing a cystic lesion,ref erred to dermcontin ue on one doxycyline daily , apply warm compresses if increases over the weekend despite therpy, may return to 1 tabletBID x 7 days Onychomyco sis of toenails 419367003 B35.1 referral to podiatry [id number] Dash Bowers DPM Podiatry, [address] [address] 07/29/2020 10:28:51 07/29/2020 14:12:39 Onychomycosis 461124803 B35.1 [id number] BETTINA Alicia , [facility], [address] [place] [address] 09/18/2020 16:11:34 09/19/2020 09:18:56 Lymphadenopathy 21883927 R59.9 L side of neck, questionab le, will arrange for Cocid testing @ [facility] tomorrow. [id number] Vee Saba , [facility], [address] [place] [address] 12/21/2020 13:13:04 12/21/2020 13:39:41 Hidradenitis suppurativa 57971368 L73.2 Abscess, currently draining. Recommenda tions as below. [id number] BAIRON Albarran , [facility], [address] [place] [address] 04/09/2021 11:01:41 04/09/2021 11:35:04 Migraine 19261582 G43.909 in care with neurology , stable on current medication Gastroesop hageal reflux disease 580673314 K21.9 reviewed small frequent mealsrevie wed high acid foodsdue to frequency of symptoms will treat with ppi for 2 weeksreass ess [id number] CHRIS Olivera, [facility], [address] [place] [address] 05/13/2021 10:48:11 05/13/2021 11:56:40 Active or passive immunization 045218905 Z23 Cigarette smoker 8749872 7 F17.210 Tobacco user 390537105 Z 72.0 Hidradenit is suppurativa 50850708 L73.2 Vomiting 819196872 R11.1 0 Resolved, now off PPI. [id number] BAIRON Albarran, [facility], [address] [place] [address] 08/06/2021 09:26:50 08/07/2021 14:22:20 Adult health examination 416302245 Z00.00 see risk assessment and lifestyle change section, anticipato ry guidance reviewed, referral to breast ca clinic with mothers recent dx. vaccine encouraged , cardiovasc nikhil lantigua reviewed Depression screening 171 186283 Z13.31 depression screening tool administer ed, entered into emr, scored and discussed, time greater than 7.5 minutes Screening for alcohol abuse 721446240 Z13.39 continues with sobriety Counseling 934820194 Z13 .6 including cardiovasc nikhil risk reduction counseling Screening for malignant neoplasm of cervix 214437347 Z12.4 PAP today. Family his tory of breast cancer 443999959 Z80.3 Cigarette smoker 0941125 7 F17.210 declines interventi ons today.repo rts not motivated today. Tobacco user 854373418 Z 72.0 Smoking 10 cigarettes per day. pt notes this is primary mode of stress relief, does note increased importance History of hepatitis C 6025830771 9101 Z86.19 labs per pt request Chronic hepatitis C 1283 15644 B18.2 known carrier, repeat labs Opioid dep endence in remission 335281661 F11.21 stable on suboxone. 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 Seizure disorder 6147146 02 G40.909 pt with history of presumed seizures while tapering from methadoneh as not been on antiepilep tics for years,foll owed by neuro will plan to contact neuro directly [id number] BAIRON Albarran, [facility], [address] [place] [address] 11/03/2021 11:06:59 11/03/2021 11:46:14 Tobacco user 984323169 Z72.0 Smoking 10 cigarettes per day. pt notes this is primary mode of stress relief, does note increased importance Perioral dermatitis 7013 88702 L71.0 reviewed potential etiologies Onychomyco sis of toenails 149203754 B35.1 requesting topical trial, if fails, will take oral Alopecia 27089103 L65.9 side of scalp thinningre ferral to derm Onychomycosis 253986958 B35.1 will prescribe topical medication s, concerned about liver toxicity of oral agnets. [id number] BAIRON Albarran, [facility], [address] [place] [address] 01/21/2022 13:43:43 01/28/2022 12:32:00 Perioral dermatitis 745103570 L71.0 not currently active but medication was effective Tobacco user 875595530 Z 72.0 Smoking 10 cigarettes per day. pt notes this is primary mode of stress relief, does note increased importance Insect bite - wound 2764 49561 T14.8XXA right hand, pruitic, rx as written below, continue to elevate apply cool compresses aware of s/s to report Onychomyco sis of toenails 633621884 B35.1 improvemen t w topical therapies Alopecia areata 87998016 L63.9 side of scalp, trial clobestaso l cream aware of need for sun protection [id number] BAIRON Albarran , [facility], [address] [place] [address] 04/17/2022 11:38:41 05/07/2022 11:11:28 Tobacco user 369306101 Z72.0 Smoking 10 cigarettes per day. pt notes this is primary mode of stress relief, does note increased importance Loss of hair 467211740 L 65.9 per pt request, possible mechanical trauma. referral to dermatolog y Hidradenit is suppurativa 14087585 L73.2 prn rx Active or passive immunization 964981101 Z23 [id number] BAIRON Albarran , [facility], [address] [place] [address] 07/03/2022 10:36:30 07/03/2022 17:36:30 Tobacco user 323385864 Z72.0 Smoking fewer cigarettes per day. pt notes this is primary mode of stress relief, Generalize d anxiety disorder 20581379 F41.1 pt qualifies for emotional support dog Onychomyco sis of toenails [id number] B35.1 improvemen t w topical therapies Migraine 38160701 G43.90 9 renew meds Eczema 16700765 L30.9 prn Opioid dep endence in remission 762678766 F11.21 stable on suboxone. 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 [id number] Phillip Vazquez PA-C FP, [facility], OFF[address] [facility] [place] [address] 07/16/2022 13:56:06 07/16/2022 16:39:49 Painful urging to urinate 95790741 R30.0 Patient instructed to push fluids, to follow up for persistent or worsening symptoms or fever or back pain. Urinary tr act infectious disease 34528016 N39.0 symptomati c with trace leukocytes .no warning signs/feat ures.flank pain resolved, afebrile, no acute distress. Enc take antibiotic s as prescribed below, force fluids and f/u if sx not improving over the next 2-3 days. OK to take otc AZO prn for sx mgt. Chronic re tention of urine 509073840 R33.8 trial tamsulosin urology referral placed [id number] Melissa Russell, BAIRON , [facility], [address] [place] [address] 03/04/2023 10:37:22 03/04/2023 11:19:38 Adult health examination 683658804 Z00.00 see risk assessment and lifestyle change section, pap due 2026 Depression screening 171 553059 Z13.31 depression screening tool administer ed Screening for alcohol abuse 688705398 Z13.39 Alcohol use screening tool administer ed Tobacco user 781548741 Z 72.0 We discussed your smoking today for more than 3 minutes. Cigarette use is the leading cause of preventabl e disease, disability , and in the [place]. We talked about tools and medication s available to help you in smoking cessation. We discussed utilizing our smoking cessation golf coach and online resources. 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 Hidradenit is suppurativa 43120649 L73.2 prn rx History of attempted suicide 978109406 Z91.51 stable Opioid dependence 326266 00 F11.20 stable in remission, on subxoone by outside provider Family his tory of breast cancer 419525856 Z80.3 Pain of left breast 1010 811647 N64.4 suspect fibrocysti c [facility] Active or passive immunization 182242597 Z23 Irregular periods 041608 07 N92.6 tsh ordered [id number] Melissa Cristopher Russell, REEL CUTTER-BENI , [facility], [address] [place] [address] 04/01/2023 11:07:16 04/01/2023 17:29:16 Tobacco user 990651790 Z72.0 We discussed your smoking today for more than 3 minutes. Cigarette use is the leading cause of preventabl e disease, disability , and in the [place]. We talked about tools and medication s available to help you in smoking cessation. We discussed utilizing our smoking cessation golf coach and online resources. Your personal goal:luly nue to cut down Hidradenit is suppurativa 83214763 L73.2 prn rx [id number] Neeru Small PA-C , [facility], [address] [place] [address] 09/08/2023 10:02:14 09/09/2023 14:23:38 Bipolar disorder 60902829 F31.9 Patient having worsening mental health over the last year.Recen t break up with carson who is still living with them in the same house has triggered a lot more anxiety and depression .Feels emotionall y unstable and that medication s are not helping them anymore.Di scussed genetic testing for psychiatri c medication s.Patient states they do not have any plans to harm themselves at this point.Revi ewed with patient plan for contacting crisis in the event that they felt they may attempt to harm themselves . Patient agrees with this plan. Has phone number for crisis services.R equesting PT-1 request for rides: case sent to nursing.Is taking psychiatri c medication s as prescribed .Consider mood stabilizer and/or genetic testing if indicated. Has f/u with Dr. Mustapha Ferguson 09/27/2023 at [facility] to discuss. Migraine 42223073 G43.90 9 migraines a bit worse recently, associates this to recent breakup and crying a lot which seems to trigger her migraines. prior PCP increased sumatripta n to 100 mg, taking Topiramate 25 mg as well. requesting refills Insomnia 994860089 G47.0 0 Melatonin Rx'ed by ER is helping with sleep, requesting refill. [id number] DO SYLVESTER REY, [facility], [address] [place] [address] 03/13/2024 13:30:11 03/13/2024 14:13:21 Adult health examination 254877113 Z00.00 {{The importance of a healthy well rounded diet was discussed* }} {{The importance of regular exercise was discussed. *}} {{The patient has discussed and made a plan to*}} {{exercise for 10 minutes 3 days per week exerc ise for 30-40 minutes 3-5 days per week incre ase regular exercise*} } {{The importance of calcium in the diet was discussed. *}} {{The patient was encouraged to increase weight bearing exercise*} } {{increase calcium intake to 1200mg daily and 800 units of Vitamin D daily* inc rease calcium intake to 1200mg daily incr ease Vitamin D intake to 800 units daily take 1000mg Vitamin D daily in the spring, summer and fall and 2000mg daily in the winter}} {{Smoking cessation discussed* }} {{Patient is not ready to quit* Brenda ent ready to quit and committed to a quit date}} {{Health Care Proxy discussed and provided to patient*}}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
[2024-10-05 10:44] VITALS: BP 152/83; PULSE 93; RESP 16; TEMP 36.8; O2SAT 93
== END 2024-10-05 10:44 | disposition home or self-care (01) ==
PROVIDERS: Emergency Provider Emergency Medicine; PCP Internal Medicine Nephrology
DX: S61.241A Puncture wound with foreign body of left index finger without damage to nail, initial encounter (principal); W45.8XXA Other foreign body or object entering through skin, initial encounter; M79.645 Pain in left finger(s); Z23 Encounter for immunization; Y93.9 Activity, unspecified; Y92.9 Unspecified place or not applicable; Y99.9 Unspecified external cause status
CPT/HCPCS: 90471; 90715; 99284